=== PATIENT | male | born 1975 | race Caucasian/White ===

== ENCOUNTER 2021-01-04 10:03 | Emergency (ER) | payer OTHER, SELFPAY ==
--- NOTE | ~2021-01-04 | CT_ITS ---
EXAMINATION: CT soft tiss nk chst ab pel w EXAM DATE: 01/04/2021 11:47 INDICATION: Fullness in throat, neck swelling, abd pain. TECHNIQUE: Spiral CT of the neck, chest, abdomen and pelvis was performed following intravenous injec tion of 100 mL Omnipaque 350. Axial, coronal and sagittal images of the neck were reviewed. Axial, coronal and sagittal images of the chest were reviewed. Coronal maximum intensity pixel images of ch est reviewed. Axial, coronal and sagittal images of the abdomen and pelvis were reviewed. Additional stack of axial images with wider collimation. The dose-length product (DLP) for this examination was 1817.01 mGy-cm. The exposure was tailored according to patient size (auto mA exposure control), and iterative reconstruction (ASIR) was used as additional dose reduction technique. There is no prior study for comparison. FINDINGS: NECK: The thyroid gland is unremarkable. The submandibular and parotid glands are symmetric. Ther e is no cervical lymphadenopathy. There are no masses identified. The airway is unremarkable. P arapharyngeal and pre-glottic fat planes are preserved. The opacified vasculature is patent. The orbits are unremarkable. Small left maxillary sinus mucous retention cyst. No more than mild cervi albert spondylosis. CHEST: The lungs are clear. There are no pleural or pericardial effusions. Tracheobronchial tree is patent. There is no mediastinal, hilar or axillary lymphadenopathy. There is no pneumothorax. Heart normal in size. No evidence of coronary arterial calcification. ABDOMEN PELVIS: The liver, spleen, adrenal glands and pancreas are unremarkable. Gallbladder is unre markable. No biliary obstruction. Portal and splenic veins are patent. Kidneys enhance symmetrical ly. There is no hydronephrosis. There is a 3 cm exophytic left renal cyst. The prostate is unremark able. The bladder is unremarkable. There is no retroperitoneal or pelvic lymphadenopathy. The appendix is normal. The stomach and small bowel are unremarkable. There is expected amount of c olonic stool. No free intraperitoneal gas. 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 IMPRESSION: 1. No suspicious neck, chest abdomen or pelvis findings. Reviewed, dictated and finalized at location B. 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
[2021-01-04 10:36] VITALS: BP 143/95; PULSE 98; RESP 18; TEMP 36.4; O2SAT 100
--- NOTE | 2021-01-04 10:46 | ED.GENADULT ---
HPI - General Adult General Chief complaint: Unspecified Stated complaint: throat pain Time Seen by Provider: 01/04/21 10:33 Source: patient Mode of arrival: ambulatory Limitations: no limitations History of Present Illness HPI narrative: This is a 45-year-old male that presents the emergency department for issues that have been ongoing for the last year. Reports he has had a abnormal feeling in his throat. He does not reported as a pain. Reports it as a fullness. Also reports he noted swelling at the base of his neck. Reports he has intermittent abdominal pain, especially after he eats. Noted as burning in nature. He has been losing weight. He was seeing ENT for these issues initially, but has not had any further work-up since the pandemic started. Denies fever, chest pain, shortness of breath, or lower extremity edema. Related Data Allergies Allergy/AdvReac Type Severity Reaction Status Date / Time Penicillins Allergy Mild Unknown Verified 01/04/21 10:39 Review of Systems Review of Systems: Narrative: CONSTITUTIONAL: Denies fever CARDIOVASCULAR: Denies chest pain, or edema. RESPIRATORY: Denies cough or dyspnea. GASTROINTESTINAL: Reports abdominal pain. Denies nausea, vomiting, or diarrhea. All systems reviewed & are unremarkable except as noted in HPI and below PMFSH Past Medical History Medical History (Updated 01/04/21 @ 12:59 by Caitlyn Davey PA-C) No active medical problems Social History Social History (Updated 01/04/21 @ 10:48 by Caitlyn Davey PA-C) Smoking status: Former smoker Gender identity (if verbalized by the patient): Male Exam Narrative: Exam Narrative: GENERAL: Well-appearing, well-nourished, and in no acute distress. HEAD: Normocephalic, atraumatic. EYES: EOMI. ENT: Nares clear, no rhinorrhea or epistaxis. Mucous membranes moist. Oropharynx without tonsillar hypertrophy exudate or other lesions. Bilateral TMs pearly coy non-bulging NECK: Supple. No adenopathy or masses. CHEST: Clear to auscultation. No respiratory distress. No wheezes rales or rhonchi HEART: Regular rate and rhythm. No murmur heard. Normal peripheral pulses. ABDOMEN: Soft, nondistended, normal active bowel sounds. Mild tenderness to palpation throughout the abdomen, without guarding EXTREMITIES: Normal range of motion. No edema. SKIN: Warm, dry, no rash. NEURO: No focal deficits. Alert and oriented x3. PSYCH: Normal mood and affect Course Vital Signs Vital signs: Vital Signs Temperature 97.6 F 01/04/21 10:36 Pulse Rate 98 01/04/21 10:36 Respiratory Rate 18 01/04/21 10:36 Blood Pressure 143/95 H 01/04/21 10:36 Pulse Oximetry 100 01/04/21 10:36 Temperature 97.6 F 01/04/21 10:36 Pulse Rate 79 01/04/21 12:51 Respiratory Rate 18 01/04/21 12:51 Blood Pressure 123/93 H 01/04/21 12:51 Pulse Oximetry 98 01/04/21 12:51 Medical Decision Making MDM Narrative Medical decision making narrative: This is a 45-year-old male that presents the emergency department for symptoms that have been ongoing over the last year. He was reporting an abnormal sensation in his throat. Reports he had been losing weight. Was initially evaluated by ENT, but has had no further work-up due to the pandemic. His vitals are stable. Oxygen saturation remained normal on room air. CBC is normal. Metabolic panel significant for mild elevation in total bili to 1.8. Lipase is normal. CT scan of the neck, chest, and abdomen/pelvis is without acute findings. Patient was updated on case findings. He is stable and felt appropriate for further outpatient evaluation. He was given warnings to return to the ER After CT scan patient noted feeling of shortness of breath and a possible rash on the arms. Lungs were clear on exam. Oxygen saturation remained normal. No rash noted on exam. I did give patient a dose of Benadryl. He refused any other medications. He remained stable throughout the rest of his visit Vital S
[2021-01-04 11:01] LABS: Basophils Percent Auto 0.8 % (0.2-1.2); Eosinophils Absolute Auto 0.1 K/mm3 (0-0.3); Eosinophils Percent Auto 1.9 % (0-4.4); Hematocrit 43.5 % (42.0-52.0); Hemoglobin 15.8 g/dL (14.0-18.0); Immature Granulocyte Absolute 0.01 K/mm3 (0.00-0.031); Immature Granulocyte Percent A 0.2 % (0-0.5); Lymphocytes Absolute Auto 1.12 K/mm3 (0.9-3.2); Lymphocytes Percent Auto 23.1 % (18.3-44.2); Mean Corpuscular HGB Conc 36.3 g/dl (32-36); Mean Corpuscular Hemoglobin 32.4 pg (26-34); Mean Corpuscular Volume 89.1 fl (80-100); Mean Platelet Volume 9.4 fl (7.4-10.4); Monocytes Absolute Auto 0.3 K/mm3 (0.1-0.6); Monocytes Percent Auto 6.6 % (2.6-8.5); Neutrophils Absolute Auto 3.3 K/mm3 (1.3-6.7); Neutrophils Percent Auto 67.4 % (45.5-73.1); Platelet Count Result 214 k/mm3 (150-375); Red Blood Count 4.88 M/mm3 (4.6-6.20); Red Cell Distribution Width 12.4 % (11.5-14.5); White Blood Count 4.8 K/mm3 (4.5-10.0)
--- NOTE | 2021-01-04 11:19 | PC.NURSE ---
Pt report taken from ELENI Barrera. Pt resting on stretcher with family at bedside. Call light within reach. Awaiting CT scan. Pt updated on plan of care.
[2021-01-04 11:24] LABS: Alanine Aminotransferase 29 U/L (4-50); Albumin Level 4.5 g/dL (3.5-5.1); Alkaline Phosphatase 47 U/L (38-126); Anion Gap 6 mmol/L (8-16); Aspartate Amino Transferase 34 U/L (17-59); Bilirubin,Total 1.8 mg/dL (0.2-1.3); Blood Urea Nitrogen 18 mg/dL (9-20); Carbon Dioxide 29 mmol/L (22-30); Chloride 104 mmol/L (98-107); Estimated CRCL calculation 90 ml/min; Estimated Glomerular Filt Rate > 60; Glucose 108 mg/dL (75-110); Lipase 147 U/L (23-300); Potassium 4.2 mmol/L (3.4-5.0); Sodium 139 mmol/L (137-145)
--- NOTE | 2021-01-04 11:50 | PC.NURSE ---
Pt reports feeling slightly sob and itchy after receiving IV contrast. Pt reports sob has no resolved. SpO2 99% on room air. Pt states he does remember having similar reaction in the past to IV contrast. Pt placed on monitors.
[2021-01-04] MEDS: diphenhydrAMINE HCl INJ 50 MG/ML VIAL IV PUSH (11:54)
[2021-01-04 12:02] VITALS: BP 136/92; PULSE 78; RESP 16; O2SAT 99
[2021-01-04 12:51] VITALS: BP 123/93; PULSE 79; RESP 18; O2SAT 98
[2021-01-04 13:10] VITALS: BP 117/84; PULSE 74; RESP 18; O2SAT 97
== END 2021-01-04 13:12 | disposition home or self-care (01) ==
PROVIDERS: Physician Assistant; Emergency Provider Family Medicine
DX: K21.9 Gastro-esophageal reflux disease without esophagitis (principal); Z87.891 Personal history of nicotine dependence
CPT/HCPCS: 36415; 70491; 71260; 74177; 80053; 83690; 85025; 96374; 99284; J1200; Q9967

== ENCOUNTER 2021-01-29 09:42 | Outpatient (CLI) | payer OTHER, SELFPAY ==
[2021-01-29 10:26] LABS: Alanine Aminotransferase 23 U/L (4-50); Albumin Level 4.4 g/dL (3.5-5.1); Alkaline Phosphatase 44 U/L (38-126); Anion Gap 5 mmol/L (8-16); Aspartate Amino Transferase 22 U/L (17-59); Bilirubin,Total 1.7 mg/dL (0.2-1.3); Blood Urea Nitrogen 15 mg/dL (9-20); Calcium 9.3 mg/dL (8.4-10.2); Carbon Dioxide 30 mmol/L (22-30); Chloride 105 mmol/L (98-107); Cholesterol 182 mg/dL (0-200); Estimated Glomerular Filt Rate > 60; Glucose 110 mg/dL (75-110); HDL Direct 31 mg/dL; Potassium 4.1 mmol/L (3.4-5.0); Sodium 140 mmol/L (137-145); Triglycerides 98 mg/dL (<150)
[2021-01-29 10:37] LABS: LDL Cholesterol Direct 125 mg/dL
[2021-01-29 10:57] LABS: Prostate Specific Antigen 0.6 ng/mL (< OR = 4.0)
[2021-01-29 11:53] LABS: Add Urine Microscopic? YES; Appearance Urine Clear (Clear); Bacteria Urine Trace /hpf; Bilirubin Urine Negative (Negative); Blood Urine Negative (Negative); Color Urine Yellow (Yellow); Glucose Urine UA Negative (Negative); Ketones Urine Trace mg/dL (Negative); Leukocyte Esterase Ur Negative LEU/UL (NEGATIVE); Mucus Urine Moderate /lpf; Nitrate Urine Negative (Negative); Protein Urine Negative (Negative); RBC Urine 0-2 /hpf (0-2); Specific Grav Ur 1.025 (1.001-1.035); Urobilinogen Urine Negative mg/dL (<2.0); WBC Urine 0-3 /hpf (0-3)
== END 2021-01-29 09:43 | disposition home or self-care (01) ==
PROVIDERS: PCP Nurse Practitioner Family; Visit Provider Nurse Practitioner Family
DX: Z76.89 Persons encountering health services in other specified circumstances (principal); R17 Unspecified jaundice
CPT/HCPCS: 36415; 80048; 80061; 80076; 81001; 82607; 82746; 84153; 84443; G0103

== ENCOUNTER → 2021-03-10 01:28 | Outpatient (CLI) | payer OTHER, SELFPAY ==
[2021-03-10 19:16] LABS: SARS-CoV-2 RNA PCR Negative
== END ==
PROVIDERS: PCP Nurse Practitioner Family; Visit Provider Internal Medicine Gastroenterology
DX: Z01.812 Encounter for preprocedural laboratory examination (principal); Z20.822 Contact with and (suspected) exposure to COVID-19
CPT/HCPCS: C9803; U0003; U0005

== ENCOUNTER 2021-03-14 01:25 | Day surgery (SDC) | payer OTHER, SELFPAY ==
[2021-03-02 13:11] VITALS: BMI 25.9
[2021-03-14 06:15] VITALS: BP 131/99; PULSE 103; RESP 20; TEMP 36.9; O2SAT 99
[2021-03-14] MEDS: LACTATED RINGERS 1,000 ML 150 ML IV CONT (06:36)
--- NOTE | 2021-03-14 06:48 | WPDANESEPPF ---
Anes - Initial Pre Proc Eval Procedure: Operation Date: 03/14/21 07:30 Proposed Procedures p Esophagogastroduodenoscopy & Colonoscopy - Alberto Sin MD Date/Time: 03/14/21 06:48 Surgeon: Alberto Sin MD Pre Op Diagnosis: neoplasm screening, Dysphagia Patient Data Age: 45 Gender: M Height: 5 ft 9 in Weight: 81 kg Last Vital Signs Temp 36.9 C 03/14/21 06:15 Pulse 103 H 03/14/21 06:15 Resp 20 03/14/21 06:15 BP 131/99 H 03/14/21 06:15 Pulse Ox 99 03/14/21 06:15 Allergies Allergy/AdvReac Type Severity Reaction Status Date / Time Penicillins Allergy Mild Unknown Verified 03/14/21 06:14 Home Medications Medication Instructions Recorded Confirmed Type omeprazole 20 mg capsule,delayed 20 mg PO DAILY #30 cap 01/16/21 03/02/21 Rx release diazepam 5 mg tablet 5 mg PO DAILY PRN #30 tablet 01/24/21 03/02/21 Rx fluticasone propionate 50 1 spray INTRANASAL BID #16 g 01/24/21 03/02/21 Rx mcg/actuation nasal spray,suspension sulfamethoxazole 800 1 tablet PO Q12H #14 tablet 02/13/21 03/02/21 Rx mg-trimethoprim 160 mg tablet Patient hx anesthesia problems: none Family hx anesthesia problems: none PMFSH Past Medical History Medical History Altered bowel habits Anxiety BMI 27.0-27.9,adult Cervicalgia Encounter to establish care Epigastric pain Lumbago No active medical problems Prostate cancer screening Rhinitis Sensation of swollen throat Total bilirubin, elevated Surgical History Surgical History History of mandibular surgery Family History Family History Father Diabetes mellitus Hypertension Mother Diabetes mellitus Hypertension Heart disease Social History Social History Smoking packs per day: 4 Smoking cigarettes per day: 80.0 Smoking status: Former smoker Tobacco type: cigarettes Alcohol intake: never Substance use: current Substance use type: does not use Living arrangements: with family Gender identity (if verbalized by the patient): Male Spiritual care concerns: No Anes - Eval Final PreProcedure Day of Procedure 03/14/21 06:48 Patient weight: overweight Heart: regular rate and rhythm Lungs: clear to auscultation Airway: Mallampati scale class II Neurological: alert and oriented Last oral intake: >/= 8 hours ASA classification: II Emergent: no Anesthetic plan: proceed Anesthesia type and monitoring: general GIVS and standard monitoring Informed Consent: The patient's anesthetic plan and its attendant risks and benefits were discussed with the patient/family/POA. Questions were solicited and answers provided to the satisfaction of the patient/family/POA.
--- NOTE | 2021-03-14 07:32 | PM.HPGS ---
History of Present Illness History of Present Illness Consent: Risks, benefits, and alternatives have been discussed and questions answered. Patient agrees to proceed with procedure. Chief complaint: neoplasm screening, Dysphagia Narrative: Shadi Gudino is a 45 year old male here for egd and colonoscoy, throat discomfort, clearing constantly, epigastric discomfort and never had scopes. Review of Systems Constitutional: Constitutional: Denies headache(s) and Denies weakness Eyes: Eyes: Denies blurry vision ENT: Reports Normal hearing present, Denies headache(s) and Denies neck pain Cardiovascular: Cardiovascular: Denies chest pain and Denies dyspnea Respiratory: Respiratory: Denies dyspnea Gastrointestinal: Gastrointestinal: Reports no additional gastrointestinal complaints Genitourinary: Genitourinary: Denies dysuria Musculoskeletal: Musculoskeletal: Denies neck pain Integumentary/Breasts: Skin/Breast: Denies dry skin Neurologic: Reports Normal hearing present, Denies headache(s) and Denies weakness Psychiatric: Psychiatric: Denies anxiety Endocrine: Endocrine: Denies change in body appearance Hematologic/Lymphatic: Hematologic/Lymphatic: Denies easy bleeding Allergic/Immunologic: Allergic/Immunologic: Denies urticaria PMFSH Past Medical History Medical History (Updated 03/14/21 @ 07:33 by Alberto Sin MD) Altered bowel habits Anxiety BMI 27.0-27.9,adult Cervicalgia Colon cancer screening Encounter to establish care Epigastric pain Lumbago No active medical problems Prostate cancer screening Rhinitis Sensation of swollen throat Total bilirubin, elevated Surgical History Surgical History History of mandibular surgery Family History Family History Father Diabetes mellitus Hypertension Mother Diabetes mellitus Hypertension Heart disease Social History Social History Smoking packs per day: 4 Smoking cigarettes per day: 80.0 Smoking status: Former smoker Tobacco type: cigarettes Alcohol intake: never Substance use: current Substance use type: does not use Living arrangements: with family Gender identity (if verbalized by the patient): Male Spiritual care concerns: No Meds Home Medications and Allergies Home Medications Medication Instructions Recorded Confirmed Type omeprazole 20 mg capsule,delayed 20 mg PO DAILY #30 cap 01/16/21 03/14/21 Rx release diazepam 5 mg tablet 5 mg PO DAILY PRN #30 tablet 01/24/21 03/14/21 Rx fluticasone propionate 50 1 spray INTRANASAL BID #16 g 01/24/21 03/14/21 Rx mcg/actuation nasal spray,suspension Allergies Allergy/AdvReac Type Severity Reaction Status Date / Time Penicillins Allergy Mild Unknown Verified 03/14/21 06:14 Vital Signs Vital Signs - 24 hr 03/14/21 06:15 Temperature 98.4 F Pulse Rate 103 H Respiratory Rate 20 Blood Pressure 131/99 H Pulse Oximetry 99 Exam Const: General: comfortable and no acute distress HENMT: General nose exam: Normal nares present Eyes: General: appearance normal, both eyes and all related structures Neck: Neck: no JVD Resp: Auscultation: clear to auscultation bilaterally Cardio: Rate: regular rate Rhythm: regular rhythm GI: Inspection: non-distended GI Palp: Yes Soft to palpation Skin: General skin exam: normal color Neuro: General: gait normal Speech: normal speech Extrem: General: normal to inspection Psych: Mental Status: mental status grossly normal Assessment and Plan Assessment and plan (1) Epigastric pain: Code(s): R10.13 - Epigastric pain Status: Acute Assessment and Plan: egd (2) Sensation of swollen throat: Code(s): R68.89 - Other general symptoms and signs Status: Acute (3) Colon cancer scree
[2021-03-14 08:00] VITALS: BP 101/74; PULSE 88; RESP 17; O2SAT 95
[2021-03-14 08:10] VITALS: BP 112/63; PULSE 74; RESP 16; O2SAT 97
[2021-03-14 08:20] VITALS: BP 116/67; PULSE 72; RESP 18; O2SAT 98
== END 2021-03-14 08:40 | disposition home or self-care (01) ==
PROVIDERS: PCP Nurse Practitioner Family; Visit Provider Internal Medicine Gastroenterology
PROC: 0DJ08ZZ Inspection of Upper Intestinal Tract, Via Natural or Artificial Opening Endoscopic (ICD-10-PCS; CPT 43235; principal; 2021-03-14 07:30)
DX: Z12.11 Encounter for screening for malignant neoplasm of colon (principal); K64.8 Other hemorrhoids; K29.50 Unspecified chronic gastritis without bleeding; B96.81 Helicobacter pylori [H. pylori] as the cause of diseases classified elsewhere; R13.10 Dysphagia, unspecified; Z87.891 Personal history of nicotine dependence
CPT/HCPCS: 45378; 43239; 88305; 88342; J2704; J7120

== ENCOUNTER 2021-04-25 11:14 | Emergency (ER) | payer OTHER, SELFPAY ==
--- NOTE | ~2021-04-25 | CT_ITS ---
EXAMINATION: CT abdomen pelvis wo con DATE: 04/25/2021 12:26 INDICATION: Left flank pain. History of kidney stones. TECHNIQUE: Computed tomography (CT) of the abdomen and pelvis was performed without intravenous contr ast. The dose-length product was 424.48 mGy-cm. Automated exposure control and iterative reconstructi on technique were employed. COMPARISON: None. FINDINGS: Lung bases are unremarkable. Heart size is normal. There there is mild thickening of the di stal gastric wall and duodenum, nonspecific. There is a 3.3 cm exophytic left renal mass measuring 25 Hounsfield units, likely a complicated cyst. Recommend correlation with ultrasound. The liver, spleen, pancreas, adrenal glands and right kidney are unremarkable. Gallbladder is present. Tiny fat-containing umbilical hernia. Nonobstructive bowel gas pattern. No renal/ureteral stone or hydronephrosis. No bladder is unremarkable. No evidence for d iverticulitis or appendicitis. No free air or free fluid. No significant vascular abnormality. No lym phadenopathy. Borderline sized spleen. IMPRESSION: 1. Mild thickening of the distal gastric and duodenal mcconnell, suspicious for gastroenteritis. No obstr uction. 2: Exophytic 3.3 cm hypodense left renal mass. This likely represents a complicated cyst. Correlation with renal ultrasound recommended. Reviewed, dictated and finalized at location A. IMPRESSION: 1. Mild thickening of the distal gastric and duodenal mcconnell, suspicious for gas troenteritis. No obstruction. 2: Exophytic 3.3 cm hypodense left renal mass. This likely represents a complic ated cyst. Correlation with renal ultrasound recommended.
--- NOTE | ~2021-04-25 | US_ITS ---
US renal BI 04/25/2021 13:35 Procedure: Realtime transabdominal ultrasound of the kidneys and bladder. Indication: Left renal mass for characterization Comparison: CT dated 04/25/2021 Findings: Right renal echotexture is normal bilaterally without hydronephrosis, contour deforming mas s or renal calculus. There is a left renal cyst measuring 3 x 2.8 x 2.6 cm exophytic from the lower p ole of left kidney. The right kidney measures 10.7 cm and left kidney measures 11.3 cm. Bladder with in normal limits. Impression: 1: Exophytic 3 cm left renal cyst corresponding to the mass identified on CT. Low level internal echo es are present, consistent with minimally complicated cyst. Reviewed, dictated and finalized at location A. Impression: 1: Exophytic 3 cm left renal cyst corresponding to the mass identified on CT. L ow level internal echoes are present, consistent with minimally complicated cys t.
[2021-04-25 11:20] VITALS: BP 154/110; PULSE 83; RESP 19; TEMP 36.4; O2SAT 99
[2021-04-25 11:38] LABS: Basophils Percent Auto 0.7 % (0.2-1.2); Eosinophils Absolute Auto 0.2 K/mm3 (0-0.3); Eosinophils Percent Auto 3.1 % (0-4.4); Hematocrit 44.8 % (42.0-52.0); Immature Granulocyte Absolute 0.02 K/mm3 (0.00-0.031); Immature Granulocyte Percent A 0.3 % (0-0.5); Lymphocytes Percent Auto 34.1 % (18.3-44.2); Mean Corpuscular HGB Conc 35.7 g/dl (32-36); Mean Corpuscular Hemoglobin 31.8 pg (26-34); Mean Corpuscular Volume 89.1 fl (80-100); Mean Platelet Volume 9.5 fl (7.4-10.4); Monocytes Absolute Auto 0.5 K/mm3 (0.1-0.6); Monocytes Percent Auto 8.8 % (2.6-8.5); Neutrophils Absolute Auto 3.3 K/mm3 (1.3-6.7); Platelet Count Result 212 k/mm3 (150-375); Red Blood Count 5.03 M/mm3 (4.6-6.20); Red Cell Distribution Width 13.1 % (11.5-14.5); White Blood Count 6.2 K/mm3 (4.5-10.0)
--- NOTE | 2021-04-25 11:39 | ED.ABDPAIN ---
HPI - Abdominal Pain General Chief Complaint: Abdominal Pain Stated Complaint: Flank Pain, Left Side Time Seen by Provider: 04/25/21 11:35 Source: patient and RN notes reviewed Limitations: no limitations History of Present Illness HPI narrative: 45 years old white male presents with right abdominal pain started last night, until this morning. Then got better. Patient reports having a lot of gas. Prior to arrival to the emergency room developed left abdominal pain radiating to left flank associated with nausea, patient denies any relieving or aggravating factors, no history of kidney stone. Patient denies any fever or chills or urinary symptoms Related Data Allergies Allergy/AdvReac Type Severity Reaction Status Date / Time Penicillins Allergy Mild Unknown Verified 04/25/21 11:32 Review of Systems Review of Systems: Narrative: CONSTITUTIONAL: Denies fever, chills, or sweats. EYES: Denies visual changes, redness, or discharge. ENT: Denies rhinorrhea, congestion, sore throat, or otalgia. CARDIOVASCULAR: Denies chest pain, palpitations, or edema. RESPIRATORY: Denies cough or dyspnea. GASTROINTESTINAL: Denies abdominal pain, nausea, vomiting, or diarrhea. GENITOURINARY: Denies dysuria or hematuria. SKIN: Denies rash or itching. MUSCULOSKELETAL: Denies back pain, joint pain, or myalgia. NEUROLOGIC: Denies headache, numbness, or weakness. PSYCHIATRIC: Denies anxiety or depression. [facility] Past Medical History Medical History Altered bowel habits Anxiety BMI 27.0-27.9,adult Cervicalgia Colon cancer screening Encounter to establish care Epigastric pain Lumbago No active medical problems Prostate cancer screening Rhinitis Sensation of swollen throat Total bilirubin, elevated Surgical History Surgical History History of mandibular surgery Family History Family History Father Diabetes mellitus Hypertension Mother Diabetes mellitus Hypertension Heart disease Social History Social History Smoking packs per day: 4 Smoking cigarettes per day: 80.0 Smoking status: Former smoker Tobacco type: cigarettes Alcohol intake: never Substance use: current Substance use type: does not use Gender identity (if verbalized by the patient): Male Spiritual care concerns: No Exam Narrative: Exam Narrative: General appearance: Well-developed, well-nourished. Patient in a standing position, looks very uncomfortable, pacing the floor Skin: Normal color Head: Normocephalic, nontraumatic Eyes: Clear conjunctiva ENT: Oropharynx normal, ears normal, nose normal Neck: Supple, nontender Chest and respiratory: Airway patent, no respiratory distress, no accessory muscle use Heart: Regular rate/rhythm Abdomen: Soft, nontender, no organomegaly, quiet bowel sounds Vascular: Normal peripheral pulses, normal capillary refill. 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
[2021-04-25] MEDS: HYDROmorphone HCL INJ (*CRX) 1 MG/ML SYR 0.5 MG IV PUSH (11:44)
[2021-04-25] MEDS: TAMSULOSIN HCL 0.4 MG CAPSULE PO (11:44)
[2021-04-25] MEDS: ONDANSETRON INJ 4 MG/2 ML VIAL IV PUSH (11:44)
[2021-04-25 11:46] LABS: Alanine Aminotransferase 46 U/L (4-50); Albumin Level 4.5 g/dL (3.5-5.1); Alkaline Phosphatase 50 U/L (38-126); Anion Gap 9 mmol/L (8-16); Aspartate Amino Transferase 43 U/L (17-59); Bilirubin,Total 1.3 mg/dL (0.2-1.3); Blood Urea Nitrogen 13 mg/dL (9-20); Calcium 9.3 mg/dL (8.4-10.2); Carbon Dioxide 27 mmol/L (22-30); Chloride 104 mmol/L (98-107); Estimated CRCL calculation 82 ml/min; Estimated Glomerular Filt Rate > 60; Glucose 103 mg/dL (75-110); Lipase 137 U/L (23-300); Potassium 3.8 mmol/L (3.4-5.0); Sodium 140 mmol/L (137-145)
[2021-04-25 12:57] LABS: Add Urine Microscopic? YES; Appearance Urine Clear (Clear); Bilirubin Urine Negative (Negative); Blood Urine Negative (Negative); Color Urine Yellow (Yellow); Glucose Urine UA Negative (Negative); Ketones Urine Negative (Negative); Leukocyte Esterase Ur Negative LEU/UL (Negative); Mucus Urine Moderate /lpf; Nitrate Urine Negative (Negative); Protein Urine 1+ mg/dL (Negative); RBC Urine 0-2 /hpf (0-2); Specific Grav Ur 1.021 (1.001-1.035); Urobilinogen Urine Negative mg/dL (<2.0); WBC Urine 0-3 /hpf
--- NOTE | 2021-04-25 13:02 | PC.NURSE ---
Pt to ultrasound.
== END 2021-04-25 14:46 | disposition home or self-care (01) ==
PROVIDERS: Emergency Provider Emergency Medicine; PCP Nurse Practitioner Family
DX: K52.9 Noninfective gastroenteritis and colitis, unspecified (principal); N28.1 Cyst of kidney, acquired; Z87.891 Personal history of nicotine dependence
CPT/HCPCS: 36415; 74176; 76775; 80053; 81001; 83690; 85025; 96374; 96375; 99284; A9270; J1170; J2405

== ENCOUNTER → 2021-07-13 09:33 | Outpatient (CLI) | payer OTHER, SELFPAY ==
[2021-07-13 18:14] LABS: SARS-CoV-2 RNA PCR Negative
== END ==
PROVIDERS: PCP Nurse Practitioner Family; Visit Provider Nurse Practitioner Family
DX: J34.89 Other specified disorders of nose and nasal sinuses (principal); R50.9 Fever, unspecified; R11.2 Nausea with vomiting, unspecified
CPT/HCPCS: C9803; U0003; U0005

== ENCOUNTER → 2021-09-05 14:30 | Outpatient (CLI) | payer OTHER, SELFPAY ==
--- NOTE | ~2021-09-05 | XR_ITS ---
EXAMINATION: XR chest 2V DATE: 09/05/2021 14:48 INDICATION: Shortness of breath. TECHNIQUE: Frontal and lateral views of the chest were obtained. COMPARISON: Chest 2 views 02/11/2019, CT abdomen and pelvis 04/25/2021 FINDINGS: The chest demonstrates clear lungs without pneumonia, pleural effusion, or pneumothorax. Th e heart size is normal. There are old healed left rib fractures. IMPRESSION: 1. No acute cardiopulmonary disease. Reviewed, dictated and finalized at location A.
== END ==
PROVIDERS: PCP Family Medicine; Visit Provider Nurse Practitioner Family
DX: R06.02 Shortness of breath (principal); R05.9 Cough, unspecified
CPT/HCPCS: 71046

== ENCOUNTER 2021-12-24 14:37 | Outpatient (CLI) | payer OTHER, SELFPAY ==
--- NOTE | ~2021-12-24 | CT_ITS ---
EXAMINATION: CT soft tissue neck chest w DATE: 12/24/2021 15:09 INDICATION: R59.1 - Generalized enlarged lymph nodes TECHNIQUE: Computed tomography (CT) of the neck and chest was performed with 75 mL Omnipaque-350 intr avenous contrast. Additional 3D reconstructions utilizing coronal maximum intensity projection (MIP) were performed. Automated exposure control and iterative reconstruction technique were employed. The dose-length product was 1204.51 mGy-cm. COMPARISON: 01/04/2021 FINDINGS: NECK: Thyroid gland is unremarkable. Submandibular and parotid glands are symmetric. There is a 1.6 x 1.0 x 0.6 cm the subperiosteal abscess along the anterior right mandible overlying a periapical lucency involving the right mandibular canine likely related to dental disease. There is soft tissue swelling and likely reactive inflammatory edema in the overlying subcutaneous tissues. Interval enlargement o f a still normal-sized right submandibular lymph node which measures 10 mm in maximal short axis diam eter. There are few additional smaller submental lymph nodes. No other pathologically enlarged cervic al lymphadenopathy. No masses identified. The vasculature is patentand normal in caliber. Airway is unremarkable. No osseous abnormalities. Orbits are unremarkable. Superior mediastinum is unremarka ble. Visualized sinuses and mastoid aircells are well aerated. CHEST: Lungs are clear. No pneumonia, pulmonary edema, pleural effusion or pneumothorax. Heart size is octavia l. No pericardial effusion. Thoracic aorta is normal in caliber with no dissection. No pathologically enlarged thoracic lymphadenopathy. Visualized upper abdomen and bones are unremarkable. IMPRESSION: 1. Anterior right mandibular subperiosteal abscess associated with periapical lucency at the right ma ndibular canine. 2. Likely reactive right submandibular lymphadenopathy. No pathologically enlarged cervical or thorac ic lymphadenopathy. Reviewed, dictated and finalized at location A. CUTTER IMPRESSION: 1. Anterior right mandibular subperiosteal abscess associated with periapical l ucency at the right mandibular canine. 2. Likely reactive right submandibular lymphadenopathy. No pathologically enlar ged cervical or thoracic lymphadenopathy.
== END 2021-12-24 14:38 | disposition home or self-care (01) ==
LOC: ANHIMG 14:43
PROVIDERS: PCP Nurse Practitioner Family; Visit Provider Nurse Practitioner Family
DX: R05.3 Chronic cough (principal); R59.0 Localized enlarged lymph nodes; R06.02 Shortness of breath; R07.81 Pleurodynia; R07.9 Chest pain, unspecified; R53.83 Other fatigue; R59.1 Generalized enlarged lymph nodes; R68.89 Other general symptoms and signs; Z87.891 Personal history of nicotine dependence; K05.219 Aggressive periodontitis, localized, unspecified severity
CPT/HCPCS: 70491; 71260; Q9967

== ENCOUNTER 2022-01-02 08:53 | Outpatient (CLI) | payer OTHER, SELFPAY ==
--- NOTE | ~2022-01-02 | US_ITS ---
US abdomen complete EXAMINATION: US Abdomen Complete INDICATION: Abdomen pain PROCEDURE: Realtime High Resolution abdomen ultrasound. COMPARISON: No prior studies for comparison FINDINGS: Gallbladder within normal limits. No gallstones, pericholecystic fluid, gallbladder wall t hickening or biliary dilatation. Common bile duct measures 4.3 mm. Liver echotexture within normal limits without focal mass. Pancreas within normal limits. Pancreati c tail is obscured by bowel gas. Spleen is unremarkeable. Renal echotexture is within normal limits bilaterally without hydronephrosis, contour deforming mass or renal stone. Right kidney measures 9.7 cm. Left kidney measures 11.1 cm. There is a left renal cyst measuring 2.9 cm. Visualized aspects of the aorta and IVC are within normal limits. Portal vein is patent. No sonograph ic Felton's sign indicated by the technologist. IMPRESSION: 1: Left renal cyst. Reviewed, dictated and finalized at location B. NOLOGY APPLICATIONS CONSULTANT IMPRESSION: 1: Left renal cyst.
== END 2022-01-02 08:54 | disposition home or self-care (01) ==
LOC: ANHIMG 08:54
PROVIDERS: PCP Nurse Practitioner Family; Visit Provider Nurse Practitioner Family
DX: R10.9 Unspecified abdominal pain (principal); N28.1 Cyst of kidney, acquired
CPT/HCPCS: 76700

== ENCOUNTER 2022-01-09 08:54 | Outpatient (CLI) | payer OTHER, SELFPAY ==
--- NOTE | ~2022-01-09 | XR_ITS ---
EXAMINATION: XR small bowel follow through DATE: 01/09/2022 11:56 INDICATION: Unspecified abdominal pain. TECHNIQUE: Oral contrast was administered, and a time course of radiographs of the abdomen was obtain ed. Fluoroscopy of the small bowel was performed. Fluoroscopy exposure time was 1.3 minutes. The tota l number of images was 9. COMPARISON: CT abdomen and pelvis 04/25/2021 FINDINGS: There are no dilated loops of bowel. There is no abnormal mass or stricture. Transit time from the st omach to proximal colon was approximately 2 hours. IMPRESSION: 1. Normal small bowel series. Reviewed, dictated and finalized at location A. 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
== END 2022-01-09 08:55 | disposition home or self-care (01) ==
LOC: ANHIMG 08:57
PROVIDERS: PCP Nurse Practitioner Family; Visit Provider Nurse Practitioner Family
DX: R10.9 Unspecified abdominal pain (principal)
CPT/HCPCS: 74250

== ENCOUNTER 2022-02-09 14:18 | Emergency (ER) | payer OTHER, SELFPAY ==
[2022-02-09 14:28] VITALS: BP 134/89; PULSE 81; RESP 18; TEMP 36.8; O2SAT 99
--- NOTE | 2022-02-09 14:44 | ED.DENTAL ---
HPI - Dental/Oral General Chief complaint: Dental/Oral Stated complaint: toothache Time Seen by Provider: 02/09/22 14:30 Source: patient Mode of arrival: ambulatory Limitations: no limitations History of Present Illness HPI Narrative: is a 46-year-old male patient presenting to clinic today with complaints of possible dental abscess to the right lower tooth. He reports that he has been doing this for for a couple weeks now. States that this tooth has actually been bothering him for a couple months and he was supposed to see the dentist to have a root canal completed or the tooth removed however, Covid happened and when he could get back into the dentist they no longer accepted his insurance and he would have to pay $1500 [id number] to have the procedure completed. Has seen a provider 3 weeks ago and was given a prescription for some Augmentin. He had finished this approximately a week ago and symptoms improved however, symptoms returned again 1 to 2 days ago. Has an allergy to clindamycin. He denies any fever chills. Reports that his face was swelling this morning and he had significant amount of pain in his right lower tooth. Pain is located to tooth #28. He reports he supposed to go to the dentist here soon when he has enough money saved up for a root canal of this tooth. States he will have enough money saved up in a week or 2 to follow-up with the dentist MD Complaint: tooth pain Location: Tooth # (28) Related Data Allergies Allergy/AdvReac Type Severity Reaction Status Date / Time Penicillins Allergy Mild Unknown Verified 02/09/22 14:49 clindamycin Allergy Unknown Verified 02/09/22 14:49 Review of Systems Review of Systems: Pertinent positives per HPI. Patient denies any fever, chills, rash, headache, visual changes, dizziness, cough, runny nose, sore throat, shortness of breath, chest pain, palpitations, nausea, vomiting, diarrhea, constipation, abdominal pain, or any urinary issues. [facility] Past Medical History Medical History Altered bowel habits Anxiety BMI 27.0-27.9,adult Cervicalgia Chest pain Chronic cough Colon cancer screening Coughing Decreased exercise tolerance Encounter to establish care Epigastric pain Fatigue Fever H. pylori infection H. pylori infection Headache History of tobacco abuse Hypersomnia Lumbago Lymphadenopathy Nasal congestion Nausea and vomiting in adult No active medical problems Pharyngitis Prostate cancer screening Rhinitis Rib pain on left side Sensation of swollen throat Shortness of breath Sinus pressure Sinusitis Snoring Thrush Total bilirubin, elevated Surgical History Surgical History History of mandibular surgery Family History Family History Father Diabetes mellitus Hypertension Mother Diabetes mellitus Hypertension Heart disease Social History Social History Smoking packs per day: 4 Smoking cigarettes per day: 80.0 Smoking status: Former smoker Tobacco type: cigarettes Alcohol intake: never Substance use: current Substance use type: marijuana Gender identity (if verbalized by the patient): Male Sexual Orientation (if Verbalized by the Patient): Straight or Heterosexual Spiritual care concerns: No Agree to blood products: Yes Comments At the time of my signature, I reviewed and agree with the nursing past medical, surgical, social, and family history. There is no relevant family history pertinent to the patient complaint. Exam Narrative: General: Well-developed, well nourished, in no apparent distress Head: Normocephalic, atraumatic Eyes: Pupils equally round and reactive to light bilaterally, EOM intact, sclera and conjunctive clear, no discharge, lids normal Ears:
== END 2022-02-09 15:20 | disposition home or self-care (01) ==
PROVIDERS: Emergency Provider Nurse Practitioner Family; PCP Nurse Practitioner Family
DX: K04.7 Periapical abscess without sinus (principal); Z87.891 Personal history of nicotine dependence; F12.90 Cannabis use, unspecified, uncomplicated
CPT/HCPCS: 99213; G0463

== ENCOUNTER 2023-02-06 09:57 | Outpatient (CLI) | payer OTHER, SELFPAY ==
--- NOTE | 2023-02-06 10:06 | EST_ITS ---
Patient Info Name: Shadi Gudino Age: 47 years : 1975 Gender: Male Ht: 69 in Wt: 185 lbs BSA: 2.04 m2 HR: 78 bpm BP: 129 / 74 mmHg Heart Rhythm: Sinus Rhythm Exam Date: 02/06/2023 10:22 AM Exam Location: [facility] Stress Patient Status: Outpatient Admit Date: 02/06/2023 Staff Ordering Physician: Angelic Kevin NP Attending Provider: Angelic Kevin NP Exercise Technologist: Analisa Sterling CT Exercise Physician: Agustin Bear DO Exam Type: CA stress test treadmill Study Info Indications R07.89 - Other chest pain R42 - Dizziness and giddiness R06.02 - Shortness of breath A treadmill exercise stress test was performed. Summary 1. 1. Negative Travis exercise stress test for ischemic ST changes by ECG criteria. 2. 2. Good functional capacity, achieving 10 METs of workload. 3. 3. Appropriate HR response to exercise. 4. 4. Appropriate HR recovery at 1 minute post exercise. 5. 5. No imaging with stress testing. 6. 6. Patient informed of the above results. Protocol: Travis Stress ECG Details Stage: REST Duration (min): 1 min : 16 sec Speed (mph): 0.0 Grade (%): 0 HR (bpm): 75 SBP (mmHg): 129 DBP (mmHg): 94 METS: --- Stage: REST Duration (min): 20 min : 32 sec Speed (mph): 0.0 Grade (%): 0 HR (bpm): 86 SBP (mmHg): 129 DBP (mmHg): 94 METS: --- Stage: STAGE 1 Duration (min): 1 min : 0 sec Speed (mph): 1.7 Grade (%): 10 HR (bpm): 98 SBP (mmHg): 129 DBP (mmHg): 94 METS: --- Stage: STAGE 1 Duration (min): 2 min : 0 sec Speed (mph): 1.7 Grade (%): 10 HR (bpm): 106 SBP (mmHg): 129 DBP (mmHg): 94 METS: --- Stage: STAGE 1 Duration (min): 3 min : 0 sec Speed (mph): 1.7 Grade (%): 10 HR (bpm): 112 SBP (mmHg): 156 DBP (mmHg): 86 METS: --- Stage: STAGE 2 Duration (min): 1 min : 0 sec Speed (mph): 2.5 Grade (%): 12 HR (bpm): 122 SBP (mmHg): 156 DBP (mmHg): 86 METS: --- Stage: STAGE 2 Duration (min): 2 min : 0 sec Speed (mph): 2.5 Grade (%): 12 HR (bpm): 128 SBP (mmHg): 159 DBP (mmHg): 91 METS: --- Stage: STAGE 2 Duration (min): 3 min : 0 sec Speed (mph): 2.5 Grade (%): 12 HR (bpm): 130 SBP (mmHg): 159 DBP (mmHg): 91 METS: --- Stage: STAGE 3 Duration (min): 1 min : 0 sec Speed (mph): 3.4 Grade (%): 14 HR (bpm): 151 SBP (mmHg): 157 DBP (mmHg): 97 METS: --- Stage: STAGE 3 Duration (min): 2 min : 0 sec Speed (mph): 3.4 Grade (%): 14 HR (bpm): 158 SBP (mmHg): 157 DBP (mmHg): 97 METS: --- Stage: STAGE 3 Duration (min): 2 min : 0 sec Speed (mph): 3.4 Grade (%): 14 HR (bpm): 158 SBP (mmHg): 157 DBP (mmHg): 97 METS: --- Stage: RECOVERY Duration (min): 0 min : 59 sec Speed (mph): 0.0 Grade (%): 0 HR (bpm): 130 SBP (mmHg): 162 DB
== END 2023-02-06 09:58 | disposition home or self-care (01) ==
LOC: ANHCARD 09:57
PROVIDERS: PCP Nurse Practitioner Family; Visit Provider Nurse Practitioner Family
DX: R68.89 Other general symptoms and signs (principal)
CPT/HCPCS: 93017

== ENCOUNTER 2023-08-20 12:30 | Emergency (ER) | payer OTHER, SELFPAY ==
[2023-08-20 12:36] VITALS: BP 155/97; PULSE 82; RESP 18; TEMP 36.4; O2SAT 100
--- NOTE | 2023-08-20 12:54 | ED.URI ---
HPI - URI/Sore Throat General Chief Complaint: Upper Respiratory Infection Stated Complaint: Headache,Body Aches,Dizziness,Congestion Time Seen by Provider: 08/20/23 12:46 Source: patient and RN notes reviewed Mode of arrival: ambulatory Limitations: no limitations History of Present Illness HPI Narrative: Patient presents today with a one-week history of body aches, joint aches, fatigue, and occasional productive cough. He also reports headache x3 days. Denies fever, sore throat, nausea vomiting, nasal congestion or rhinorrhea. Denies sick contacts. He took Aleve once without relief of symptoms. Patient is a former smoker, quit 10 years ago, but used to smoke 3-4 packs per day. Denies history of COPD or asthma. Related Data Allergies Allergy/AdvReac Type Severity Reaction Status Date / Time venom-wasp Allergy Severe Anaphylaxis Verified 08/20/23 12:33 clindamycin AdvReac Mild Blister Verified 08/20/23 12:33 Penicillins AdvReac Mild Rash Verified 08/20/23 12:33 Review of Systems Review of Systems: CONSTITUTIONAL: Denies fever, chills, or sweats.+ body aches, joint aches, fatigue EYES: Denies visual changes, redness, or discharge. ENT: Denies rhinorrhea, congestion, sore throat, or otalgia. CARDIOVASCULAR: Denies chest pain, palpitations, or edema. RESPIRATORY: Denies dyspnea.+ occasional cough GASTROINTESTINAL: Denies abdominal pain, nausea, vomiting, or diarrhea. GENITOURINARY: Denies dysuria or hematuria. SKIN: Denies rash, itching, or wounds. MUSCULOSKELETAL: Denies back pain, or myalgia. NEUROLOGIC: Denies headache, numbness, tingling, or weakness.+ headache PSYCH: Denies depression or anxiety. [facility] Past Medical History Medical History Allergic reaction to wasp sting (05/03/22) treated in the ER with epinephrine, prednisone, Benadryl 05/03/2022. Altered bowel habits Anxiety Asthma BMI 27.0-27.9,adult Cervicalgia Chest pain Chronic cough Colon cancer screening Coughing Cyst of left kidney Decreased exercise tolerance Dysuria Encounter to establish care Epigastric pain Fatigue Fever GERD (gastroesophageal reflux disease) H. pylori infection H. pylori infection Headache History of tobacco abuse Hypersomnia Lesion of mouth Lumbago Lymphadenopathy Nasal congestion Nausea and vomiting in adult No active medical problems Periodontitis Pharyngitis Prostate cancer screening Rhinitis Rib pain on left side Sensation of swollen throat Shortness of breath Sinus pressure Sinusitis Snoring Thrush Total bilirubin, elevated Surgical History Surgical History History of mandibular surgery Family History Family History Father Diabetes mellitus Hypertension Mother Diabetes mellitus Hypertension Heart disease Social History Social History Smoking packs per day: 4 Smoking cigarettes per day: 80.0 Smoking status: Former smoker Tobacco type: cigarettes Alcohol intake: current Alcohol use details: Rarely Substance use: current Substance use type: marijuana Living arrangements: with family Occupation/Education: occupation Gender identity (if verbalized by the patient): Male Sexual Orientation (if Verbalized by the Patient): Straight or Heterosexual Spiritual care concerns: No Agree to blood products: Yes Comments At time of signature, I have reviewed and agree with nursing past medical, surgical, social and family history unless otherwise noted. Please see nursing chart for further information. There is no relevant family history pertinent to the presenting complaint Exam Narrative: GENERAL: Well-appearing, well-nourished, and in no acute distress. HEAD: Normocephalic, atraumatic. EYES: EOMI. No redness or drainage. C
== END 2023-08-20 13:14 | disposition home or self-care (01) ==
PROVIDERS: Emergency Provider Nurse Practitioner; PCP Nurse Practitioner Family
DX: B34.9 Viral infection, unspecified (principal); Z87.891 Personal history of nicotine dependence; Z20.822 Contact with and (suspected) exposure to COVID-19
CPT/HCPCS: 87426; 87804; 99213; C9803; G0463

== ENCOUNTER 2024-09-27 14:54 | Emergency (ER) | payer OTHER, SELFPAY ==
[2024-09-27 15:14] VITALS: BP 128/81; PULSE 75; RESP 18; TEMP 36.7; O2SAT 99
--- NOTE | 2024-09-27 15:56 | ED_ITS ---
HPI - URI/Sore Throat General Chief Complaint: Upper Respiratory Infection Stated Complaint: sinus issues and headache Time Seen by Provider: 09/27/24 15:26 Source: patient and RN notes reviewed Mode of arrival: ambulatory Limitations: no limitations History of Present Illness HPI Narrative: Patient presents today with a 3 day history of scratchy throat, headache, nausea, fatigue, and bilateral ear clogging. Denies fever, cough, shortness of breath, chest pain. He has been taking Sudafed and Nyquil with mild relief. No history of COPD or asthma. Son currently sick with similar symptoms. Related Data Home Medications Medication Instructions Recorded Confirmed sucralfate 1 gram tablet 09/27/24 Allergies Allergy/AdvReac Type Severity Reaction Status Date / Time venom-wasp Allergy Severe Anaphylaxis Verified 09/27/24 15:21 clindamycin Allergy Mild Blister Verified 09/27/24 15:21 Penicillins Allergy Mild Rash Verified 09/27/24 15:21 Review of Systems Review of Systems: CONSTITUTIONAL: Denies body aches, fever, chills, or sweats.+ fatigue EYES: Denies visual changes, redness, or discharge. ENT: Denies rhinorrhea, congestion, sore throat, or otalgia.+ scratchy throat, ear clogging CARDIOVASCULAR: Denies chest pain, palpitations, or edema. RESPIRATORY: Denies cough or dyspnea. GASTROINTESTINAL: Denies abdominal pain, vomiting, or diarrhea.+ nausea GENITOURINARY: Denies dysuria or hematuria. SKIN: Denies rash, itching, or wounds. MUSCULOSKELETAL: Denies back pain, joint pain, or myalgia. NEUROLOGIC: Denies numbness, tingling, or weakness.+ headache PSYCH: Denies depression or anxiety. [facility] Past Medical History Medical History Allergic reaction to wasp sting (05/03/22) treated in the ER with epinephrine, prednisone, Benadryl 05/03/2022. Altered bowel habits Anxiety Arthralgia of multiple joints Asthma BMI 27.0-27.9,adult Cervicalgia Chest pain Chronic cough Colon cancer screening Coughing Cyst of left kidney Decreased exercise tolerance Dysuria Elevated fasting glucose Encounter to establish care Epigastric pain Fatigue Fever GERD (gastroesophageal reflux disease) H. pylori infection H. pylori infection Headache History of tobacco abuse Hyperlipidemia Hypersomnia Lesion of mouth Lumbago Lymphadenopathy Nasal congestion Nausea and vomiting in adult No active medical problems Periodontitis Pharyngitis Prostate cancer screening Rhinitis Rib pain on left side Sensation of swollen throat Shortness of breath Sinus pressure Sinusitis Snoring Thrush Total bilirubin, elevated Surgical History Surgical History History of mandibular surgery Family History Family History Father Diabetes mellitus Hypertension Mother Diabetes mellitus Hypertension Heart disease Social History Social History Smoking packs per day: 4 Smoking cigarettes per day: 80.0 Smoking status: Former smoker Tobacco type: cigarettes Alcohol intake: current Alcohol use details: Rarely Substance use: current Substance use type: marijuana Living arrangements: with family Occupation/Education: occupation Gender identity (if verbalized by the patient): Male Sexual Orientation (if Verbalized by the Patient): Straight or Heterosexual Spiritual care concerns: No Agree to blood products: Yes Comments At time of signature, I have reviewed and agree with nursing past medical, surgical, social and family history unless otherwise noted. Please see nursing chart for further information. There is no relevant family history pertinent to the presenting complaint Exam Narrative: GENERAL: Well-appearing, well-nourished, and in no acute distress. HEAD: Normocephalic, atraumatic. EYES: EOMI. No redness or drainage. Conjunctivae normal. ENT: Mucous membranes pink and moist. Nares clear. No rhinorrhea. TMs normal bilaterally. Throat normal. Uvula midline. NECK: Normal AROM. Supple. No lymphadenopathy. CHEST: No respiratory distress. Clear to auscultation. HEART: Regular rate and rhythm. No murmur appreciated. EXTREMITIES: Normal range of motion. No edema. SKIN: Warm, dry, no rash. Capillary refill normal. Normal skin turgor. NEURO: No focal deficits. Alert and oriented x3. Gait steady. PSYCH: Normal affect. No signs of depression or anxiety. Course Course Level of Care: Express Care Visit Vital Signs Vital signs: Vital Signs Temperature 98.1 F 09/27/24 15:14 Pulse Rate 75 09/27/24 15:14 Respiratory Rate 18 09/27/24 15:14 Blood Pressure 128/81 09/27/24 15:14 Pulse Oximetry 99 09/27/24 15:14 Oxygen Delivery Room Air 09/27/24 15:14 Temperature 98.1 F 09/27/24 15:14 Pulse Rate 75 09/27/24 15:14 Respiratory Rate 18 09/27/24 15:14 Blood Pressure 128/81 09/27/24 15:14 Pulse Oximetry 99 09/27/24 15:14 Oxygen Delivery Room Air 09/27/24 15:14 Reviewed MDM - URI/Sore Throat MDM Narrative Medical decision making narrative: Influenza and COVID negative. Symptoms likely viral in etiology. Discussed ov [id number] medication use and duration of illness. No prescription medications indicated at this time. Anticipatory guidance given. Differential Diagnosis Differential diagnosis: Likely upper respiratory infection, otitis media, viral infection, influenza and other (COVID) Lab Data Attestation: I reviewed the patient's lab results. Lab results narrative: Influenza and COVID negative Critical Care Time Critical Care Time Critical Care Time: No Discharge Plan Discharge Clinical Impression: Upper respiratory infection Qualifiers: URI type: unspecified URI Qualified Code(s): J06.9 - Acute upper respiratory infection, unspecified Patient Disposition: Home, Self-Care Condition: Stable Instructions: Upper Respiratory Infection (DC) Additional Instructions: Your symptoms are likely due to a viral illness, which is not treated with antibiotics. Virus symptoms can last for up to 7-10days. Take ibuprofen, Aleve, or for pain or fever. Rest and stay hydrated. Follow up with your PCP in 7 days if symptoms are not improving. Go to the ER immediately if you develop shortness of breath, difficulty swallowing, or any other concerning symptoms. Your blood pressure was elevated above 120/80 today at Urgent Care. This puts you above the threshold for follow up. Please schedule a followup visit with your personal physician as soon as possible, for further evaluation and treatment. Even blood pressure exceeding 120/80 may indicate pre-hypertension. Prescriptions: No Action sucralfate 1 gram tablet albuterol sulfate 90 mcg/actuation HFA aerosol inhaler 1 - 2 inh inhalation Q4-6H PRN (Reason: shortness of breath or wheezing) Qty: 8.5 0RF pantoprazole 40 mg tablet,delayed release (DR/EC) 40 mg PO QAM Qty: 90 3RF Follow-up/Referrals: Sherwin,AMI Mccall [Primary Care Provider] - Time of Disposition: 16:05
[2024-09-27 16:04] LABS: EDCOVIDSCREEN Negative (Negative); EDINFLUASCREEN Negative (Negative); EDINFLUBSCREEN Negative (Negative)
== END 2024-09-27 16:11 | disposition home or self-care (01) ==
PROVIDERS: Emergency Provider Nurse Practitioner; PCP Physician Assistant
DX: J06.9 Acute upper respiratory infection, unspecified (principal); Z20.822 Contact with and (suspected) exposure to COVID-19; J45.909 Unspecified asthma, uncomplicated; K21.9 Gastro-esophageal reflux disease without esophagitis; E78.5 Hyperlipidemia, unspecified; Z87.891 Personal history of nicotine dependence
CPT/HCPCS: 87426; 87804; 99212; G0463

== ENCOUNTER 2025-05-25 17:03 | Emergency (ER) | payer SELFPAY ==
--- OUTSIDE RECORDS SUMMARY | 2025-05-25 17:06 | XMS_ITS ---
Author Organization [facility] Address [address] [place], [place] [id number] Care Team Providers Care Organizational Research Consultant Name Role Phone ZafarhayleyAgata upton Unavailable [phone] REASON FOR VISIT flu Encounters Encounter Location Date Provider Diagnosis [facility] [address], [address] [place], [place] [id number] 12/27/2024 Agata Castrejon Polyarthralgia M25.5 0 ; Paresthesia R20.2 and Dizziness R42 ASSESSMENTS Encounter Date Diagnosis Assessment Notes Treatment Notes Treatment Clinical Notes Section Notes 12/27/2024 Polyarthralgia (ICD-10 - M25.50) Worsening join t complaints- check additional labs to evaluate for an underlying inflammatory arthritis or CTD. Reviewed patients health history forms 12/27/2024 Paresthesia (ICD-10 - R20.2) Worsening joint complaints- check additional labs to evaluate for an underlying inflammatory arthritis or CTD. Reviewed patients health history forms 12/27/2024 Dizziness (ICD-10 - R42) Worsening joint complaints- check additional labs to evaluate for an underlying inflammatory arthritis or CTD. 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 No subcutaneous nodules noted in the 4 extremities Neurological: No focal neurologica l findings Heme/Lymphatic: No cervical, axillar y, or inguinal adenopathy Psych: Alert, oriented x 3, Normal affect Musculoskeletal: Normal strength. No muscle atrophy Joint Exam Shoulders No swelling. No tenderness. NROM. Elbows No swelling. No tend erness. NROM. Wrists No swelling. No tend erness. NROM. Hips No tenderness, octavia l ROM, no instability or deformity Knees No swelling, no tend erness, NROM. No instability or deformity Ankles No swelling, no tend erness, NROM., No instability or deformity. All MCPs No swelling, no tend erness, no deformity unless noted below. All PIPs No swelling, no tend erness, no deformity unless noted below. All DIPs No swelling, no tend erness, no deformity unless noted below. All MTPs No swelling, no tend erness, NROM, no deformity unless noted below. History and Physical Notes * HPI (History of Present Illness) Category Sub-Category Detail Notes Category Not es Rheumatology Joint pain He was referred by his PCP for evaluation of Labs 01/04: ESR=1
--- OUTSIDE RECORDS SUMMARY | 2025-05-25 17:06 | XMS_ITS | Encounter Summary ---
Author Organization [facility] Address [address] [place] [address] Care Team Providers Care Embedded Software Manager Name Role Phone Maria L Guillen PA-C Primary Care Provider [phone] Angelic Kevin Primary Care Provider [phone] Flaquito Courtney Primary Care Provider [phone] Encounter Details Date Type Department Care Team (Late st Contact Info) Description 08/05/2011 Abstract [facility] Conversion Md, Generic Conversion, Social History Tobacco Use Types Packs/Day Years Used Date Smoking Tobacco: Never Assessed Sex and Gender Information Value Date Recorded Sex Assigned at Male 11/23/2024 11:58 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 Sex Male 4:46 PM CDT Gender Identity Not on file Sexual Orientation Not on file documented as of this encounter Plan of Treatment Not on file documented as of this encounter Visit Diagnoses Not on filedocumented in this encounter Additional Health Concerns Infection Onset Date Last Indicated Resolved Time COVID-19 Rule Out 12/30/2022 12/30/2022 12/30/2022 1:10 PM TURBINE INSPECTOR COVID-19 Rule Out 04/04/2024 04/04/2024 04/04/2024 9:27 PM CDT COVID-19 Rule Out 11/27/2024 11/27/2024 11/27/2024 4:04 PM TURBINE INSPECTOR COVID-19 Rule Out 12/15/2024 12/15/2024 12/15/2024 1:14 PM TURBINE INSPECTOR COVID-19 Rule Out 12/15/2024 12/15/2024 12/15/2024 1:42 PM TURBINE INSPECTOR COVID-19 Rule Out 01/24/2025 01/24/2025 01/24/2025 9:05 AM CDT Respiratory Rule Out 01/24/2025 01/24/2025 025 9:05 AM CDT COVID-19 Confirmed 01/24/2025 01/24/2025 12:32 AM CDT documented as of this encounter Care Teams Embedded Software Manager Relationship Specialty Start Date End Date Maria L Guillen PA-C [address] [facility] [address] [place] [address] PCP - General PHYSICIAN RISK ANALYST 12/04/18 12/22/21 Angelic Kevin APNP [address] [address] [address] [place] [id number] PCP - General Nurse Practitioner Family 12/23/21 [address] [place] [address] [place], [place] [id number] PCP - General Physician Public Information Coordinator Medical 04/09/24 documented as of this encounter
--- OUTSIDE RECORDS SUMMARY | 2025-05-25 17:06 | XMS_ITS | Patient Health Record ---
Author Organization [facility] Address [address] [place], [place] [id number] Care Team Providers Care Kiln Door Builder Name Role Phone Zafarhayleyalexsandra Agata Unavailable [phone] REASON FOR REFERRAL No Information PROBLEMS Problem Type ICD Code Onset Dates Problem Status W/U Status Risk SNOMED Code Notes Problem Paresthesia (R20.2) Active confirmed [id number] Encounters Encounter Location Date Provider Diagnosis [facility] [address], [address] [id number] 12/22/2024 Agata Castrejon Polyarthralgia M25.5 0 ; Paresthesia R20.2 and Dizziness R42 [facility] [address] [place], [place] [id number] 12/27/2024 Agata Castrejon Polyarthralgia M25.5 0 ; Paresthesia R20.2 and Dizziness R42 [facility] [address] [place], [place] [id number] 01/03/2025 Agata Castrejon ASSESSMENTS Encounter Date Diagnosis Assessment Notes Treatment Notes Treatment Clinical Notes Section Notes 12/22/2024 Polyarthralgia (ICD-10 - M25.50) Worsening join t complaints- check additional labs to evaluate for an underlying inflammatory arthritis or CTD. Reviewed patients health history forms 12/22/2024 Paresthesia (ICD-10 - R20.2) Worsening joint complaints- check additional labs to evaluate for an underlying inflammatory arthritis or CTD. Reviewed patients health history forms 12/27/2024 Polyarthralgia (ICD-10 - M25.50) Worsening join t complaints- check additional labs to evaluate for an underlying inflammatory arthritis or CTD. Reviewed patients health history forms 12/27/2024 Paresthesia (ICD-10 - R20.2) Worsening joint complaints- check additional labs to evaluate for an underlying inflammatory arthritis or CTD. Reviewed patients health history forms 12/22/2024 Dizziness (ICD-10 - R42) Worsening joint complaints- check additional labs to evaluate for an underlying inflammatory arthritis or CTD. Reviewed patients health history forms 12/27/2024 Dizziness (ICD-10 - R42) Worsening joint complaints- check additional labs to evaluate for an underlying inflammatory arthritis or CTD. Reviewed patients health history forms 01/03/2025 Reviewed patients health history forms PLAN OF TREATMENT No Information Insurance Providers Payer Name Payer Address Payer Phone Subscriber Number Group Number Insured Name Patient Relationship to Insured Coverage Start Date Coverage End Date [facility] [employer] [facility] [place] Exchange NO Referral RQD [address] [place] [address] [id number] Shadi Alfonso Self - patient is the insured 5
--- OUTSIDE RECORDS SUMMARY | 2025-05-25 17:06 | XMS_ITS | Clinical Summary ---
Author Organization [facility] Address [address], [facility] [address] [place] [address] Phone Care Team Providers Care Manager Of Data Name Role Phone Flaquito Courtney Primary Care Provider [phone] Joaquin Thao MD Unavailable [phone] Allergies Active Allergy Reactions Criticality Noted Date Comments Atorvastatin Other (see Comments) 04/12/2024 Chest pain Clindamycin Other (see Comments) Medium 12/23/2021 Oral blisters Omeprazole Other (see Comments) 02/28/2020 Constipation. Penicillins Hives,Rash,Unknown Low 06/07/2011 Medications No known medications Active Problems No known active problems Family History Medical History Relation Name Comments Diabetes Father Hypertension Father Cardiac Issues Mother Diabetes Mother Relation Name Status Comments Father Alive Mother Alive Sister Alive Social History Tobacco Use Types Packs/Day Years Used Date Smoking Tobacco: Former Cigarettes 3 34.5 S tarted: 1990 Smokeless Tobacco: Never Sex and Gender Information Value Date Recorded Sex Assigned at Not on file Legal Sex Male 10:38 AM ALGEBRAIST Gender Identity Not on file Sexual Orientation Not on file Last Filed Vital Signs Vital Sign Reading Time Taken Comments Blood Pressure 128/64 01/13/2025 10:07 AM ALGEBRAIST Pulse 63 01/13/2025 10:07 AM ALGEBRAIST Temperature 36.7 C (98 F) 01/13/2025 10:07 AM ALGEBRAIST Respiratory Rate - - Oxygen Saturation 97% 01/13/2025 10:07 AM ALGEBRAIST Inhaled Oxygen Concentration - - Weight 78.9 kg (174 lb) 01/13/2025 10:07 AM ALGEBRAIST Height 172.7 cm (5' 8) 01/13/2025 10:07 AM ALGEBRAIST Body Mass Index 26.46 01/13/2025 10:07 AM ALGEBRAIST Plan of Treatment Health Maintenance Due Date Last Done Comments Hepatitis C Virus (HCV) Screening 1974 Hepatitis B Immunization (1 of 3 - 19+ 3-dose series) 1993 Cologuard 2019 Colonoscopy 2019 Pneumococcal Immunization (5 0+ years) (1 of 1 - PCV) 2024 SARS-COV-2 Immunization (1 - 2023-25 season) 2024 Zoster Immunization (1 of 2) 2024 Influenza Immunization (#1) 2025 Colorectal Cancer Screening 08/16/2025 Immunochemical Fecal Occult Blood 08/16/2025 024 Respiratory Syncytial Virus (RSV) Immunization (Adult) (1 - 1-dose 75+ series) 2049 TdaP Immunization Completed 12/31/2011 Human Papillomavirus (HPV) Immunization Aged Out No longer eligible b ased on patient's age to complete this topic Meningococcal Immunization (ACWY) Aged Out No longer eligible based on patient's age to complete this topic Rotavirus Immunization Aged Out No lo nger eligible based on patient's age to complete this topic Insurance [employer] Care Teams Manager Of Data Relationship Specialty Start Date End Date Flaquito Courtney PA [address] [place] [address] PCP - General Physician Leaf Stripper 12/30/24 Joaquin Thao MD [address] [place] [phone] Consulting Physician Oncology 12/30/24
--- OUTSIDE RECORDS SUMMARY | 2025-05-25 17:06 | XMS_ITS | Referral Summary ---
Author Organization [facility] Address [address] [place] [address] Care Team Providers Care Pedicab Driver Name Role Phone Angelic Kevin NP Primary Care Provider [phone] Allergies No known active allergies Medications tamsulosin (FLOMAX) 0.4 mg extended release capsule Take 1 capsule (0.4 mg total) by mouth nightly 90 capsule 3 07/03/2022 Active Active Problems Problem Noted Date Diagnosed Date Dysuria 07/03/2022 Prostatitis 07/03/2022 Social History Tobacco Use Types Packs/Day Years Used Date Smoking Tobacco: Former Comments:smoked 1-2 ppd for 4 years. Quit smoking approximately 2017 AUDIT-C Answer Date Recorded Q1: How often do you have a drink containing alc ohol? Never 07/03/2022 Average Number of Drinks Not on file 022 Frequency of Binge Drinking Not on file 06/11 Personal Safety Answer Date Recorded Have you ever been in or are you currently in a harmful physical or emotional relationship or is someone making you feel afraid or unsafe? Denies 12/09/2024 Sex and Gender Information Value Date Recorded Sex Assigned at Not on file Legal Sex Male 1:57 AM TABLE MAKER Gender Identity Not on file Sexual Orientation Not on file Last Filed Vital Signs Vital Sign Reading Time Taken Comments Blood Pressure 128/81 12/09/2024 1:04 PM TABLE MAKER Pulse 96 12/09/2024 1:04 PM TABLE MAKER Temperature 36.9 C (98.5 F) 12/09/2024 11:10 AM TABLE MAKER Respiratory Rate 12 12/09/2024 1:04 PM TABLE MAKER Oxygen Saturation 99% 12/09/2024 1:04 PM TABLE MAKER Inhaled Oxygen Concentration - - Weight 74.8 kg (165 lb) 12/09/2024 11:10 AM TABLE MAKER Height 175.3 cm (5' 9) 12/09/2024 11:10 AM TABLE MAKER Body Mass Index 24.37 12/09/2024 11:10 AM TABLE MAKER Plan of Treatment Not on file Insurance [facility] [employer] [place] Care Teams Pedicab Driver Relationship Specialty Start Date End Date Angelic Kevin NP PCP - General Family Medicine 07/02/22
--- OUTSIDE RECORDS SUMMARY | 2025-05-25 17:06 | XMS_ITS | Clinical Summary ---
Author Organization [facility] Address [address] [place] [address] Care Team Providers Care Pulp Drier Firer Name Role Phone Angelic Kevin NP Primary Care Provider [phone] Allergies No known active allergies Medications tamsulosin (FLOMAX) 0.4 mg extended release capsule Take 1 capsule (0.4 mg total) by mouth nightly 90 capsule 3 07/03/2022 Active Active Problems Problem Noted Date Diagnosed Date Dysuria 07/03/2022 Prostatitis 07/03/2022 Surgical History Surgery Date Site/Laterality Comments MANDIBLE FRACTURE SURGERY Medical History Medical History Date Comments Bone fracture Family History Medical History Relation Name Comments Prostate cancer Paternal Grandmother Relation Name Status Comments Paternal Grandmother d from prostate cancer Social History Tobacco Use Types Packs/Day Years [...] on file Legal Sex Male 1:57 AM GAS APPLIANCE MECHANIC Gender Identity Not on file Sexual Orientation Not on file Obstetrics History Last Filed Vital Signs Vital Sign Reading Time Taken Comments Blood Pressure 128/81 12/09/2024 1:04 PM GAS APPLIANCE MECHANIC Pulse 96 12/09/2024 1:04 PM GAS APPLIANCE MECHANIC Temperature 36.9 C (98.5 F) 12/09/2024 11:10 AM GAS APPLIANCE MECHANIC Respiratory Rate 12 12/09/2024 1:04 PM GAS APPLIANCE MECHANIC Oxygen Saturation 99% 12/09/2024 1:04 PM GAS APPLIANCE MECHANIC Inhaled Oxygen Concentration - - Weight 74.8 kg (165 lb) 12/09/2024 11:10 AM GAS APPLIANCE MECHANIC Height 175.3 cm (5' 9) 12/09/2024 11:10 AM GAS APPLIANCE MECHANIC Body Mass Index 24.37 12/09/2024 11:10 AM GAS APPLIANCE MECHANIC Plan of Treatment Health Maintenance Due Date Last Done Comments Colon Cancer Screening-Colonoscopy 1974 Depression Screening 1974 Hepatitis C Screening 1974 Prostate Cancer Screening-PSA 1974 Hepatitis B Screening 1992 Regular Well Visit/Exam 18-64 1992 Pneumococcal vaccine <65 (1 of 2 - PCV) 1993 DTaP/Tdap/Td Vaccine (2 - Td or Tdap) 12/31/2021 Zoster Vaccine (1 of 2) 2024 Influenza Vaccine (Season Ended) 2025 Insurance [facility] Care Teams Pulp Drier Firer Relationship Specialty Start Date End Date Angelic Kevin NP PCP - General Family Medicine 07/02/22
--- OUTSIDE RECORDS SUMMARY | 2025-05-25 17:06 | XMS_ITS | Encounter Summary ---
Author Organization [facility] Address [address] [place] [address] Care Team Providers Care Outside Sales Advertising Executive Name Role Phone Maria L Guillen PA-C Primary Care Provider [phone] Angelic Kevin Primary Care Provider [phone] Flaquito Courtney Primary Care Provider [phone] Encounter Details Date Type Department Care Team (Late st Contact Info) Description 08/15/2015 Abstract [facility] CONVERSION [address] [place], [place] [id number] , Generic ConversionMD Social History Tobacco Use Types Packs/Day Years Used Date Smoking Tobacco: Never Assessed Sex and Gender Information Value Date Recorded Sex Assigned at Male 11/23/2024 11:58 AM DEFENCE FORCE SENIOR OFFICER Legal Sex Male 4:46 PM CDT Gender Identity Not on file Sexual Orientation Not on file documented as of this encounter Plan of Treatment Not on file documented as of this encounter Visit Diagnoses Not on filedocumented in this encounter Additional Health Concerns Infection Onset Date Last Indicated Resolved Time COVID-19 Rule Out 12/30/2022 12/30/2022 12/30/2022 1:10 PM DEFENCE FORCE SENIOR OFFICER COVID-19 Rule Out 04/04/2024 04/04/2024 04/04/2024 9:27 PM CDT COVID-19 Rule Out 11/27/2024 11/27/2024 11/27/2024 4:04 PM DEFENCE FORCE SENIOR OFFICER COVID-19 Rule Out 12/15/2024 12/15/2024 12/15/2024 1:14 PM DEFENCE FORCE SENIOR OFFICER COVID-19 Rule Out 12/15/2024 12/15/2024 12/15/2024 1:42 PM DEFENCE FORCE SENIOR OFFICER COVID-19 Rule Out 01/24/2025 01/24/2025 01/24/2025 9:05 AM CDT Respiratory Rule Out 01/24/2025 01/24/2025 025 9:05 AM CDT COVID-19 Confirmed 01/24/2025 01/24/2025 12:32 AM CDT documented as of this encounter Care Teams Outside Sales Advertising Executive Relationship Specialty Start Date End Date Maria L Guillen PA-C [address] [facility] [place] [address] PCP - General PHYSICIAN CHARTER COORDINATOR 12/04/18 12/22/21 Angelic Kevin APNP [address] [address] [address] [place] [address] PCP - General Nurse Practitioner Family 12/23/2103/12 [place] [address] [place] [address] PCP - General Physician Marine Driller Medical 04/09/24 documented as of this encounter
--- OUTSIDE RECORDS SUMMARY | 2025-05-25 17:06 | XMS_ITS | Encounter Summary ---
Author Organization [facility] Address [address] [place] [address] Care Team Providers Care Screw Machine Set Up Operator Tool Name Role Phone Flaquito Courtney Primary Care Provider Encounter Details Date Type Department Care Team (Late st Contact Info) Description 12/03/2024 [employer] Message Enc [facility] - [address], [address] [place] [id number] [employer] miguel[employer], [facility] Provider Scheduling Social History Tobacco Use Types Packs/Day Years Used Date Smoking Tobacco: Former Cigarettes 1 30.2 1 989 - 02/04/2019 Passive Smoke Exposure: Past Smokeless Tobacco: Former Chew Quit: 1998 Alcohol Use Standard Drinks/Week Comments Not Currently 0 (1 standard drink = 0.6 oz pur e alcohol) wendy oscar [facility] Utilities Answer Date Recorded In the past 12 months has [employer], gas, oil, or water [employer] threatened to shut off services in your home? No 11/30/2024 Humiliation, Afraid, Rape, and Kick questionnair e Answer Date Recorded Within the last year, have y ou been afraid of your partner or ex-partner? No 11/30/2024 Within the last year, have y ou been humiliated or emotionally abused in other ways by your partner or ex-partner? No Within the last year, have y ou been kicked, hit, slapped, or otherwise physically hurt by your partner or ex-partner? No 11/30/2024 Within the last year, have y ou been raped or forced to have any kind of sexual activity by your partner or ex-partner? No 11/30/2024 Overall Financial Resource Strain (CARDIA) Answe r Date Recorded How hard is it for you to pa y for the very basics like food, housing, medical care, and heating? Very hard 11/30/2024 PHQ-2 Answer Date Recorded Patient Health Questionnaire-2 Score 0 04/12/2024 Hunger Vital Sign Answer Date Recorded Within the past 12 months, y ou worried that your food would run out before you got the money to buy more. Never true 11/30/19 25 Within the past 12 months, t he food you bought just didn't last and you didn't have money to get more. Never true 11/30/2024 PRAPARE - Transportation Answer Date Re corded In the past 12 months, has l ack of transportation kept you from medical appointments or from getting medications? No 11/11 In the past 12 months, has l ack of transportation kept you from meetings, work, or from getting things needed for daily living? No 11/30/2024 Housing Stability Vital Sign Answer Ramiro e Recorded In the last 12 months, was t here a time when you were not able to pay the mortgage or rent on time? No 11/30/2024 In the past 12 months, how m any times have you moved where you were living? 0 11/30/2024 At any time in the past 12 m [facility], were you homeless or living in a fpc (including now)? No 11/30/2024 Sex and Gender Information Value Date Recorded Sex Assigned at Male 11/23/2024 11:58 AM WEAPONS ELECTRICAL ENGINEERING OFFICER Legal Sex Male 4:46 PM CDT Gender Identity Not on file Sexual Orientation Not on file documented as of this encounter Functional Status * Question Answer Date of Assessment Author Status Do you have serious difficulty walking or climbing stairs? No 12/03/2024 7:59 AM Ernie Bernabe, RN Ac tive Do you have difficulty dressing or bathing? No 12/03/2024 7:59 AM Ernie Bernabe, R N Active * Are you deaf or do you have serious difficulty hearing Answer Date of Assessment Author Status No 12/03/2024 7:59 AM Ernie Bernabe RN Active * Are you blind or do you have serious difficulty seeing, even when wearing glasses? Answer Date of Assessment Author Status No 12/03/2024 7:59 AM Ernie Bernabe RN Active * Do you have serious difficulty walking or climbing stairs? Answer Date of Assessment Author Status No 12/03/2024 7:59 AM Ernie Bernabe RN Active * Do you have difficulty dressing or bathing? Answer Date of Assessment Author Status No 12/03/2024 7:59 AM Ernie Bernabe RN Active * Because of a physical, mental, or emotional condition, do you have difficulty doing errands alone such as visiting a doctor's office or shopping? Answer Date of Assessment Author Status No 11/30/2024 3:44 PM Jemma Ng RN Active * Question Answer Date of Assessment Author Status Are you deaf or do you have serious difficulty hearing No 12/03/2024 7:59 AM Ernie Bernabe RN Act prashant Are you blind or do you have serious difficulty seeing, even when wearing glasses? No 12/03/2024 7:59 AM Ernie Bernabe RN Act prashant * Calculated C-SSRS Risk Score (Lifetime/Recent) Answer Date of Assessment Author Status No Risk Indicated 12/03/2024 9:51 PM Socorro Turcios RN Active * M[place]racken Suicide Severity Rating Scale (Screener/Recent Self-Report) Question Answer Date of Assessment Author Status 1. Wish to be (Past 1 Month) No 12/03/2024 9:51 PM Socorro Turcios RN Active 2. Non-Specific Active Suicidal Thoughts (Past 1 Month) No 12/03/2024 9:51 PM Socorro Turcios RN Active 6. Suicidal Behavior (Lifetime) No 12/03/2024 9:51 PM Socorro Turcios RN Active documented as of this encounter Mental Status * Question Answer Entry Date Author Status Because of a physical, mental, or emotional condition, do you have serious difficulty concentrating, remembering, or making decisions? No 12/03/2024 7:59 AM Ernie Bernabe R N Active * Because of a physical, mental, or emotional condition, do you have serious difficulty concentrating, remembering, or making decisions? Answer Entry Date Author Status No 12/03/2024 7:59 AM WEAPONS ELECTRICAL ENGINEERING OFFICER Ernie Elliott RN Active documented in this encounter Plan of Treatment Not on file documented as of this encounter Goals Goal Patient Goal Type Associated Problems Recent Progress Patient-Stated? Author Patient will return to prior living situation and remain independent in ADLs upon discharge from hospital Lifestyle No Anali Ashley RN documented as of this encounter Visit Diagnoses Not on filedocumented in this encounter Additional Health Concerns Infection Onset Date Last Indicated Resolved Time COVID-19 Rule Out 12/15/2024 12/15/2024 12/15/2024 1:14 PM WEAPONS ELECTRICAL ENGINEERING OFFICER COVID-19 Rule Out 12/15/2024 12/15/2024 12/15/2024 1:42 PM WEAPONS ELECTRICAL ENGINEERING OFFICER COVID-19 Rule Out 01/24/2025 01/24/2025 01/24/2025 9:05 AM CDT Respiratory Rule Out 01/24/2025 01/24/2025 025 9:05 AM CDT COVID-19 Confirmed 01/24/2025 01/24/2025 12:32 AM CDT Assessment Noted Time PHQ-9 Depression Total Score: 3 11/12/19 20 1:01 PM WEAPONS ELECTRICAL ENGINEERING OFFICER documented as of this encounter Care Teams Screw Machine Set Up Operator Tool Relationship Specialty [place] [address] [place] [address] PCP - General Physician All Around Presser Medical 04/09/24 documented as of this encounter
--- OUTSIDE RECORDS SUMMARY | 2025-05-25 17:07 | XMS_ITS | Encounter Summary ---
Author Organization [facility] Address [address] [place] [address] Care Team Providers Care Remote Ruby On Rails Developer Name Role Phone Maria L Guillen PA-C Primary Care Provider [phone] Angelic Kevin Primary Care Provider [phone] Flaquito Courtney Primary Care Provider [phone] Encounter Details Date Type Department Care Team (Late st Contact Info) Description 04/17/2019 Abstract [facility] CONVERSION [address] [id number] , Generic MD Jonny Social History Tobacco Use Types Packs/Day Years Used Date Smoking Tobacco: Former Cigarettes Smokeless Tobacco: Former Chew Quit: 1998 Alcohol Use Standard Drinks/Week Comments Yes 0 (1 standard drink = 0.6 oz pur e alcohol) wendy oscar Sex and Gender Information Value Date Recorded Sex Assigned at Male 11/23/2024 11:58 AM JEWELRY MANAGER Legal Sex Male 4:46 PM CDT Gender Identity Not on file Sexual Orientation Not on file documented as of this encounter Plan of Treatment Not on file documented as of this encounter Visit Diagnoses Not on filedocumented in this encounter Additional Health Concerns Infection Onset Date Last Indicated Resolved Time COVID-19 Rule Out 12/30/2022 12/30/2022 12/30/2022 1:10 PM JEWELRY MANAGER COVID-19 Rule Out 04/04/2024 04/04/2024 04/04/2024 9:27 PM CDT COVID-19 Rule Out 11/27/2024 11/27/202411/27/2024 4:04 PM JEWELRY MANAGER COVID-19 Rule Out 12/15/2024 12/15/2024 12/15/2024 1:14 PM JEWELRY MANAGER COVID-19 Rule Out 12/15/2024 12/15/2024 12/15/2024 1:42 PM JEWELRY MANAGER COVID-19 Rule Out 01/24/2025 01/24/2025 01/24/2025 9:05 AM CDT Respiratory Rule Out 01/24/2025 01/24/2025 025 9:05 AM CDT COVID-19 Confirmed 01/24/2025 01/24/2025 12:32 AM CDT documented as of this encounter Care Teams Remote Ruby On Rails Developer Relationship Specialty Start Date End Date Maria L Guillen PA-C [address] [facility] [address] [place] [address] PCP - General PHYSICIAN DITCH REPAIRER 12/04/18 12/22/21 Angelic Kevin APNP [address] [address] [address] [place] [phone] PCP - General Nurse Practitioner [facility] 12/23/2103/12 [place] [address] [place] [address] PCP - General Physician Ceramic Designer Medical 04/09/24 documented as of this encounter
--- OUTSIDE RECORDS SUMMARY | 2025-05-25 17:07 | XMS_ITS | Clinical Summary ---
Author Organization [facility] Address [address] [place] [address] Care Team Providers Care Game Breeding Farm Manager Name Role Phone Flaquito Courtney Primary Care Provider [phone] Allergies Active Allergy Reactions Criticality Noted Date Comments Clindamycin Contact Dermatitis Medium 12/23/2021 Oral blisters Atorvastatin Other (see comment) 04/12/2024 Chest pain Penicillins Hives,Rash,Unknown Low 06/07/2011 Omeprazole GI Upset 02/28/2020 Constipation. Medications albuterol sulfate HFA 108 (90 Base) MCG/ACT inhalerIndicati ons:Asthma ([facility]) Inhale 2 puffs into the lungs every 6 (six) hours as needed. 1 Inhaler 1 02/03/2020 Active fluticasone propionate (FLONASE) 50 MCG/ACT nasal spray 1 spray by Each Nostril route daily as needed for Rhinitis. 15.8 mL 12/03/2024 Active tamsulosin (FLOMAX) 0.4 MG Cap Take 1 capsule (0.4 mg total) by mouth daily. 30 capsule 12/04/2024 Active albuterol sulfate HFA 108 (90 Base) MCG/ACT inhalerIndicati ons:Centrilobul ar emphysema (CMS/[facility]) Inhale 2 puffs into the lungs every 6 (six) hours as needed for Wheezing. 18 g 6 01/14/2025 Active omeprazole (PRILOSEC) 40 MG capsule Take 1 capsule (40 mg total) by mouth daily. 01/17/2025 Active Active Problems Problem Noted Date Diagnosed Date Lipoma of neck 12/21/2024 Hypotension, unspecified 12/19/2024 Assessment & Plan (12/19/2024 6:25 PM SYSTEM SUPPORT ADMINISTRATOR): Blood pressure initially 90/60 mmHg in office. Recheck blood pressure 3 times, sitting, standing, and after walking around for a few minutes. Sitting and standing pressures remained 90/70 mmHg. Blood pressure after walking around for a few minutes was around 110 systolic. Patient stopped taking all medications about 2 weeks ago. States he remains well-hydrated throughout the day. He had a recent viral infection at the beginning of the year and currently in office states he is feeling somewhat nauseous. Advised patient to continue to monitor home blood pressures and remain well-hydrated. Informed patient if blood pressures drop below 90 systolic and he becomes symptomatic he should call our office or seek further evaluation at the ER. Other chest pain 12/19/2024 Assessment & Plan (12/19/2024 6:30 PM SYSTEM SUPPORT ADMINISTRATOR): Patient has been experiencing intermittent chest pain along with shortness of breath over the past few weeks. Chest pain is not always associated with exertional activities. Pain will occasionally wake patient up from sleep. Explained chest pain is atypical in nature to patient. Given patient's significant smoking history and new onset of symptoms, will plan for stress test to further evaluate. Weight loss 11/30/2024 Generalized abdominal pain 11/30/2024 Dizziness 05/07/2024 Assessment & Plan (05/07/2024 11:19 AM CDT): Will check an echocardiogram. Its possible that his episodes are related to vasovagal episodes. Agree with neurology consultation. Palpitations 05/07/2024 Assessment & Plan (12/19/2024 6:27 PM SYSTEM SUPPORT ADMINISTRATOR): Patient reports palpitations on and off over the past few weeks. Will plan for a 30-day event monitor. Assessment & Plan (05/07/2024 11:19 AM CDT): Discussed monitoring, but he does not appear to be having palpitations frequent enough to recommend a monitor at this time. Claudication 05/07/2024 Assessment & Plan (05/07/2024 11:20 AM CDT): It seems like he may be having some claudicationin his legs given the weakness and cramping he is describing. If his echo is within normal limits, we can consider RAJESH. Hypogonadism in male 05/06/2019 History of tobacco abuse 08/10/2015 Assessment & Plan (12/19/2024 6:32 PM SYSTEM SUPPORT ADMINISTRATOR): Patient reports to smoking 2 to 4 packs of cigarettes from the ages of [age]. He has not smoked in the past 5 years. Encouraged continued smoking cessation. Cervical radiculopathy 07/27/2013 Asthma ([facility]) Resolved Problems Problem Noted Date Diagnosed Date Resolved Date Prostate cancer screening 05/06/2019 Depression 04/14/2013 12/11/2018 Overview (12/11/2018): well controlled per pt, no longer needing medications Encounters Date Type Department Care Team Description 03/04/2025 Results [facility] [address] [place] [id number] Kandy Liz, RN CLINIC - OUTPATIENT EVENT RECORDER (ECG) UP TO 30 DAYS COMPLETE (Holter) from Last 3 Months Immunizations Immunization Administration Dates Next Due Tdap (Generic) 12/31/2011 Family History Medical History Relation Comments Diabetes Cousin leukemia Cousin Asthma Father COPD Father Diabetes Father Hypertension Father Cancer Maternal Grandfather Diabetes Maternal Grandfather Lung Cancer Maternal Grandfather Diabetes Maternal Grandmother leg tumor Maternal Grandmother Lung Cancer Maternal Uncle Diabetes Mother Hypertension Mother Open Heart Mother Cancer Paternal Grandfather leukemia, i ntestinal? Diabetes Paternal Grandfather Cancer Paternal Grandmother lymphoma an d breast cancer. Diabetes Paternal Grandmother Lung Cancer Paternal Uncle Relation Status Comments Cousin Father Alive Maternal Grandfather Maternal Grandmother Maternal Uncle Mother Alive Paternal Grandfather Paternal Grandmother Paternal Uncle Social History Tobacco Use Types Packs/Day Years Used Date Smoking Tobacco: Former Cigarettes 1 30.2 1 989 - 02/04/2019 Passive Smoke Exposure: Past Smokeless Tobacco: Former Chew Quit: 1998 Tobacco Cessation:Counseling Given: Not Answered Alcohol Use Standard Drinks/Week Comments Not Currently 0 (1 standard drink = 0.6 oz pur e alcohol) [facility] Utilities Answer Date Recorded In the past 12 months has th e electric, gas, oil, or water company threatened to shut off services in your [...] Date Recorded Patient Health Questionnaire-2 Score 0 01/21/2025 Hunger Vital Sign Answer Date Recorded Within [...] any time in the past 12 m [facility], were you homeless or living in a alf (including now)? No 11/30/2024 Sex and Gender Information Value Date Recorded Sex Assigned at Male 11/23/2024 11:58 AM SYSTEM SUPPORT ADMINISTRATOR Legal Sex Male 4:46 PM CDT Gender Identity Not on file Sexual Orientation Not on file Last Filed Vital Signs Vital Sign Reading Time Taken Comments Blood Pressure 114/74 02/02/2025 1:01 PM CDT Pulse 101 02/02/2025 1:01 PM CDT Temperature 37.3 C (99.1 F) 02/02/2025 1:01 PM CDT Respiratory Rate 18 02/02/2025 1:01 PM CDT Oxygen Saturation 99% 02/02/2025 1:01 PM CDT Inhaled Oxygen Concentration - - Weight 78.5 kg (173 lb) 02/02/2025 1:01 PM CDT Height 172.7 cm (5' 8) 02/02/2025 1:01 PM CDT Body Mass Index 26.3 02/02/2025 1:01 PM CDT Plan of Treatment Health Maintenance Due Date Last Done Comments Annual Physical 1977 Hepatitis C 1992 Hepatitis B Vaccines (1 of 3 - 19+ 3-dose series) 1993 Pneumococcal Vaccine: 50+ Years (1 of 2 - PCV) 1993 DTaP, Tdap and Td Vaccines ( 2 - Td or Tdap) 12/31/2021 12/31/2011 COVID-19 Vaccine (1 - 2023-2 5 season) 2024 Zoster Vaccines (1 of 2) 2024 Lung Cancer Screening 01/25/2026 01/25/2025 , 08/16/2024 Colorectal Cancer Screening Colonoscopy (10 Years) 12/01/2034 12/01/2024 Colorectal Cancer Screening FIT/FOBT (1 Year) Discontinued 08/16/2024 PHQ-2 (Physician [place]) Completed 01/21/2025 Meningococcal B Vaccine Aged Out No l onger eligible based on patient's age to complete this topic Meningococcal Vaccine Aged Out No charo chloe eligible based on patient's age to complete this topic RSV Immunizations Under 20 Months Aged Out No longer eligible based on patient's age to complete this topic Goals Goal Patient Goal Type Associated Problems Recent Progress Patient-Stated? Author Patient will return to prior living situation and remain independent in ADLs upon discharge from hospital Lifestyle No Anali Ashley, RN Interventions Community Resource Recommendations Community Resource Services Recommended Domains Addressed Status Status Reason/Outcome Date/Time [facility] Financial Assistance Financial Resource Strain 12/01/2024 9:35 AM SYSTEM SUPPORT ADMINISTRATOR [facility] Financial Assistance Financial Resource Strain 12/01/2024 9:35 AM SYSTEM SUPPORT ADMINISTRATOR from Last 12 Months Medical Devices Implanted Type Area Home Health Attendant Device Identifier Shelf Expiration Date Model / Serial / Lot Pillcam Implanted:Qty: 1 on 12/03/2024 by uJli Palmer, ELENI at [facility] 01/07/2026 [id number] / / [id number] Description:Manufacture- Giv en Procedures Procedure Name Priority Date/Time Associated Diagnosis Comments CT CHEST WO CON Routine 01/25/2025 3:01 PM CDT Lung nodule OCCULT BLOOD, FECES STAT 08/16/2024 4 :42 PM CDT from Last 3 Months or Most Recently Relevant to Health Maintenance Results * CT CHEST WO CON (01/25/2025 3:01 PM CDT) Anatomical Region Laterality Modality Chest Computed Tomogra phy 01/27/2025 12:5 5 AM CDT Impressions 01/27/2025 1:00 AM CDT IMPRESSION: 1. Redemonstration of an approximately 4 mm left upper lobe pulmonary nodule appearing similar to the prior examination but new since 08/16/2024. If the patient has a smoking history or other risk factors, a follow-up chest CT could be considered on or around 12/10/2025 to evaluate for interval change per Fleischner guidelines. 2. Minimal pulmonary emphysema. Referred By: VISHAL APPLE Interpreted By: Jon Tate DO, 01/27/2025 12:55 AM Narrative 01/27/2025 1:00 AM CDT [facility] [address] [place], [place] [address] EXAMINATION: CT CHEST WO CON EXAM DATE: 01/25/2025 2:54 PM CLINICAL HISTORY: Follow-up pulmonary nodule. COMPARISON: CTA chest 12/10/[address] chest, abdomen, and pelvis 08/16/2024. TECHNIQUE: Axial unenhanced CT of the chest was performed. Coronal and sagittal reformatted images were obtained and reviewed. A radiation dose lowering technique was used for this procedure, which may include, but is not limited to, dose reduction technique, automated exposure control, the use of iterative reconstruction, ALARA (As Low As Reasonably Achievable) techniques, and Image Gently techniques. FINDINGS: MEDIASTINUM: The heart is normal in size without pericardial effusion. There are minimal atherosclerotic calcifications at the thoracic aortic arch without aneurysmal dilatation of the thoracic aorta. There is no mediastinal fluid collection or adenopathy. There is no internal mammary chain, axillary, or supraclavicular adenopathy. PLEURAL SPACES: There is no pleural effusion or pneumothorax. LUNGS: There is minimal pulmonary emphysema in the lung apices. A 4 mm pulmonary nodule is redemonstrated in the left lung apex (series 3 image 39) appearing similar to the prior examination but new since 08/16/2024. There is no focal pulmonary consolidation. ABDOMEN: There are atherosclerotic calcifications of the visualized upper abdominal aorta. MUSCULOSKELETAL: There is no destructive osseous lesion. Procedure Note Jon Tate, - 01/27/2025 [facility] [address] [place], [place] [address] EXAMINATION: CT CHEST WO CON EXAM DATE: 01/25/2025 2:54 PM CLINICAL HISTORY: Follow-up pulmonary nodule. COMPARISON: CTA chest 12/10/[address] chest, abdomen, and [id number]/2024. TECHNIQUE: Axial unenhanced CT of the chest was performed. Coronal andsagittal reformatted images were obtained and reviewed. A radiation doselowering technique was used for this procedure, which may include, but isnot limited to, dose reduction technique, automated exposure control, theuse of iterative reconstruction, ALARA (As Low As Reasonably Achievable)techniques, and Image Gently techniques. FINDINGS: MEDIASTINUM: The heart is normal in size without pericardial effusion. There areminimal atherosclerotic calcifications at the thoracic aortic arch withoutaneurysmal dilatation of the thoracic aorta. There is no mediastinal fluidcollection or adenopathy. There is no internal mammary chain, axillary,or supraclavicular adenopathy. PLEURAL SPACES: There is no pleural effusion or pneumothorax. LUNGS: There is minimal pulmonary emphysema in the lung apices. A 4 mm pulmonarynodule is redemonstrated in the left lung apex (series 3 image 39)appearing similar to the prior examination but new since 08/16/2024. Thereis no focal pulmonary consolidation. ABDOMEN: There are atherosclerotic calcifications of the visualized upper abdominalaorta. MUSCULOSKELETAL: There is no destructive osseous lesion. IMPRESSION: 1. Redemonstration of an approximately 4 mm left upper lobe pulmonarynodule appearing similar to the prior examination but new since 08/16/2024.If the patient has a smoking history or other risk factors, a follow-upchest CT could be considered on or around 12/10/2025 to evaluate forinterval change per Fleischner guidelines. 2. Minimal pulmonary emphysema. Referred By: VISHAL APPLE Interpreted By: Jon Tate DO, 01/27/2025 12:55 AM Vishal Apple MD CT Final Resul t * OCCULT BLOOD, FECES (08/16/2024 4:42 PM CDT) OCCULT BLOOD FECAL NEGATIVE 08/16/2024 5:06 PM CDT [facility] STOOL SPECIMEN / Unknown 08/16/2024 4:42 PM CDT us Andrea Perez DO BODY FLUIDS AND STOOLS ORDERAB LES Final Result [facility] [address] [place] [address], [place] [phone] from Last 3 Months or Most Recently Relevant to Health Maintenance Insurance Advance Directives * Full Code (Latest Code Status on File) Date Activated Date Inactivated Comments 11/30/2024 3:27 PM 12/03/2024 9:27 AM Care Teams Game Breeding Farm Manager Relationship Specialty [place] [address] [place] [address] PCP - General Physician E Commerce Strategist Medical 04/09/24
--- OUTSIDE RECORDS SUMMARY | 2025-05-25 17:07 | XMS_ITS | Encounter Summary ---
Author Organization [facility] Address [address] [place] [address] Care Team Providers Care Cold Roll Packer Sheet Iron Name Role Phone Flaquito Courtney Primary Care Provider [phone] Encounter Details Date Type Department Care Team (Late st Contact Info) Description 12/24/2024 [facility] Documentation [facility] [address] [place] [id number] Tom Rayo MD [address] [address] Social History Tobacco Use Types Packs/Day Years Used Date Smoking Tobacco: Former Cigarettes 1 30.2 1 989 - 02/04/2019 Passive Smoke Exposure: Past Smokeless Tobacco: Former Chew Quit: 1998 Alcohol Use Standard Drinks/Week Comments Not Currently 0 (1 standard drink = 0.6 oz pur e alcohol) wendy oscar [facility] Utilities Answer Date Recorded In the past 12 months has e electric, gas, oil, or water company [...] Date Recorded Patient Health Questionnaire-2 Score 0 12/15/2024 Hunger Vital Sign Answer Date Recorded Within [...] any time in the past 12 m [facility], were you homeless or living in a nursing home (including now)? No 11/30/2024 Sex and Gender Information Value Date Recorded Sex Assigned at Male 11/23/2024 11:58 AM HUMAN SERVICES CASE MANAGER Legal Sex Male 4:46 PM CDT Gender Identity Not on file Sexual Orientation Not on file documented as of this encounter Functional Status * Are you deaf or do you have serious difficulty hearing Answer Date of Assessment Author Status No 12/03/2024 7:59 AM Ernie Bernabe RN Active * Are you blind or do you have serious difficulty seeing, even when wearing glasses? Answer Date of Assessment Author Status No 12/03/2024 7:59 AM HUMAN SERVICES CASE MANAGER Ernie Elliott RN Active * Do you have serious difficulty walking or climbing stairs? Answer Date of Assessment Author Status No 12/03/2024 7:59 AM Ernie Bernabe RN Active * Do you have difficulty dressing or bathing? Answer Date of Assessment Author Status No 12/03/2024 7:59 AM HUMAN SERVICES CASE MANAGER Ernie Elliott RN Active * Because of a physical, mental, or emotional condition, do you have difficulty doing errands alone such as visiting a doctor's office or shopping? Answer Date of Assessment Author Status No 11/30/2024 3:44 PM HUMAN SERVICES CASE MANAGER Jemma De Guzman RN Active documented as of this encounter Mental Status * Because of a physical, mental, or emotional condition, do you have serious difficulty concentrating, remembering, or making decisions? Answer Entry Date Author Status No 12/03/2024 7:59 AM HUMAN SERVICES CASE MANAGER Ernie Elliott RN Active documented in this [...] Last Indicated Resolved Time COVID-19 Rule Out 01/24/2025 01/24/2025 01/24/2025 9:05 AM CDT Respiratory Rule Out 01/24/2025 01/24/2025 025 9:05 AM CDT COVID-19 Confirmed 01/24/2025 01/24/2025 12:32 AM CDT Assessment Noted Time PHQ-9 Depression Total Score: 3 11/12/19 20 1:01 PM HUMAN SERVICES CASE MANAGER documented as of this encounter Care Teams Cold Roll Packer Sheet Iron Relationship Specialty [place] [address] [place] [address] PCP - General Physician Instrument Man Medical 04/09/24 documented as of this encounter
--- OUTSIDE RECORDS SUMMARY | 2025-05-25 17:07 | XMS_ITS ---
Author Organization [facility] Address [address] [place], [place] [id number] Care Team Providers Care Fitter Hand Name Role Phone Cash Agata Unavailable [phone] REASON FOR VISIT auto immune/flu Encounters Encounter Location Date Provider Diagnosis [facility] [address], [address] [place], [place] [phone] 01/03/2025 Agata Castrejon ASSESSMENTS Encounter Date Diagnosis Assessment Notes Treatment Notes Treatment Clinical Notes Section Notes 01/03/2025 Reviewed patients health history forms PLAN OF TREATMENT Next Appt Details Follow Up: 2 Weeks with TURRET PUNCH PRESS OPERATOR, Reason: Progress Notes * Examination Category Sub-Category [...]
--- OUTSIDE RECORDS SUMMARY | 2025-05-25 17:07 | XMS_ITS ---
Author Organization [facility] Address [address] [place], [place] [id number] Care Team Providers Care Warp Tier Name Role Phone Agata Castrejon Unavailable [phone] REASON FOR VISIT auto immune PROBLEMS Problem Type ICD Code Onset Dates Problem Status W/U Status Risk SNOMED Code Notes Problem Paresthesia (R20.2) Active confirmed [id number] Encounters Encounter Location Date Provider Diagnosis [facility] [address], [address] [place], [place] [id number] 12/22/2024 Agata Cash Polyarthralgia M25.5 0 ; Paresthesia R20.2 and [...] Appt Details Follow Up: 2 Weeks with JIGMAKER, Reason: Progress Notes * Examination Category Sub-Category [...]
[2025-05-25 17:09] VITALS: BP 132/78; PULSE 82; RESP 16; TEMP 36.4; O2SAT 98
--- NOTE | 2025-05-25 17:23 | ED.BACK ---
HPI - Back Pain/Injury General Chief Complaint: Back Pain/Injury Stated Complaint: Stomach / Back Pain Time Seen by Provider: 05/25/25 17:24 Source: patient and RN notes reviewed Mode of arrival: ambulatory Limitations: no limitations History of Present Illness HPI Narrative: 49-year-old male presented for complaint dark colored urine for about 2 weeks. He endorses urine is very dark in the mornings, says it alarcon at the end of urination, and smells like ?maple syrup. ? Pain at times radiates from bladder to left lower back/hip area or to the testicular area. LBM this morning and says was normal. denies vomiting, diarrhea, hematochezia, hematuria, or fever. Endorses chronic nausea and generalized abdominal pain which he says has been worked up recently. Pt admits to working outside and tries to drink water. Related Data Home Medications ?Medication ?Instructions ?Recorded ?Confirmed ?Last Taken ?Type sucralfate 1 gram tablet 1 g DIRECTED 09/27/24 09/27/24 Unknown History Allergies Allergy/AdvReac Type Severity Reaction Status Date / Time venom-wasp Allergy Severe Anaphylaxis Verified 05/25/25 17:05 clindamycin Allergy Mild Blister Verified 05/25/25 17:05 Penicillins Allergy Mild Rash Verified 05/25/25 17:05 Review of Systems Review of Systems: CONSTITUTIONAL: Denies body aches, fever, chills ENT: Denies rhinorrhea, congestion CARDIOVASCULAR: Denies chest pain, palpitations, or edema. RESPIRATORY: Denies cough or dyspnea. GASTROINTESTINAL: Endorses abdominal pain, nausea, Denies vomiting, diarrhea, hematochezia, melena GENITOURINARY: reports dysuria, denies hematuria, or CVA tenderness. SKIN: Denies rash MUSCULOSKELETAL: Denies back pain, joint pain, or myalgia. NEUROLOGIC: Denies headache, numbness, tingling, or weakness. All systems reviewed & are unremarkable except as noted in HPI and below PMFSH Past Medical History Medical History Allergic reaction to wasp sting (05/03/22) treated in the ER with epinephrine, prednisone, Benadryl 05/03/2022. Altered bowel habits Anxiety Arthralgia of multiple joints Asthma BMI 27.0-27.9,adult Cervicalgia Chest pain Chronic cough Colon cancer screening Coughing Cyst of left kidney Decreased exercise tolerance Dysuria Elevated fasting glucose Encounter to establish care Epigastric pain Fatigue Fever GERD (gastroesophageal reflux disease) H. pylori infection H. pylori infection Headache History of tobacco abuse Hyperlipidemia Hypersomnia Lesion of mouth Lumbago Lymphadenopathy Nasal congestion Nausea and vomiting in adult No active medical problems Periodontitis Pharyngitis Prostate cancer screening Rhinitis Rib pain on left side Sensation of swollen throat Shortness of breath Sinus pressure Sinusitis Snoring Thrush Total bilirubin, elevated Surgical History Surgical History History of mandibular surgery Family History Family History Father Diabetes mellitus Hypertension Mother Diabetes mellitus Hypertension Heart disease Social History Social History Smoking packs per day: 4 Smoking cigarettes per day: 80.0 Smoking status: Former smoker Tobacco type: cigarettes Alcohol intake: current Alcohol use details: Rarely Substance use: current Substance use type: marijuana Living arrangements: with family Occupation/Education: occupation Gender identity (if verbalized by the patient): Male Sexual Orientation (if Verbalized by the Patient): Straight or Heterosexual Spiritual care concerns: No Agree to blood products: Yes Comments At time of signature, I have reviewed and agree with nursing past medical, surgical, social and family history unless otherwise noted. Please see nursing chart for further information. There is no relevant family history pertinent to the presenting complaint Exam Narrative: GENERAL: Well-appearing, and in no acute distress. ENT: Mucous membranes pink and moist. CHEST: No respiratory distress. Clear to auscultation. HEART: Regular rate and rhythm. ABDOMEN: abd soft, nondistended, normal active bowel sounds. Tender abdomen to RUQ and suprapubic area. No guarding, rebound tenderness, asymmetry. EXTREMITIES: Normal range of motion. No edema. SKIN: Warm, dry, no rash. Capillary refill normal. Normal skin turgor. NEURO: No focal deficits. Alert and oriented x3. PSYCH: Normal affect. Course Course Emergency Course: Patient is aware of diagnosis, understands and agrees to treatment plan. Anticipatory guidance given. Patient agrees to follow-up as directed and is aware of reasons to seek care at the emergency department. Portions of this record may have been created with voice recognition software Level of Care: Express Care Visit Vital Signs Vital signs: Vital Signs Temperature 97.6 F 05/25/25 17:09 Pulse Rate 82 05/25/25 17:09 Respiratory Rate 16 05/25/25 17:09 Blood Pressure 132/78 05/25/25 17:09 Pulse Oximetry 98 05/25/25 17:09 Oxygen Delivery Room Air 05/25/25 17:09 Temperature 97.6 F 05/25/25 17:09 Pulse Rate 82 05/25/25 17:09 Respiratory Rate 16 05/25/25 17:09 Blood Pressure 132/78 05/25/25 17:09 Pulse Oximetry 98 05/25/25 17:09 Oxygen Delivery Room Air 05/25/25 17:09 MDM - Back Pain/Injury MDM Narrative Medical decision making narrative: Discussed physical exam findings and reviewed urine, will culture. Pt is tender to RUQ but he stated he had US 01/2025. Pt states he has no insurance at this time and wants to wait for any additional testing until the insurance restarts. Pt admits to working outside and tries to drink water; advised electrolyte replacement. Advised supportive measures and signs/symptoms to go to the ER. Pt is appropriate for outpt treatment and f/u. Differential Diagnosis Differential diagnosis: Likely other (STI, UTI, cystitis, testicular torsion, hernia, cholecystitis, appendicitis, diverticulitis, ischemic colitis, mesenteric ischemia, peritonitis, IBS, tumor, pyelonephritis) Discharge Plan Discharge Clinical Impression: Dysuria Patient Disposition: Home Condition: Stable Instructions: Antibiotic Form, Dehydration (ED) Additional Instructions: Your urine will be sent of for a culture to determine if bacteria is causing your symptoms. If the culture shows a UTI, you will be notified and an antibiotic will be called in for you. Stay hydrated. Take small sips of fluid containing electrolytes frequently. You can also add sips of pickle juice if you will be outside in the heat for long periods. Avoid fatty, greasy, fried or spicy foods. Limit dairy until symptoms are improved. You should go to the hospital if you experience persistent nausea and vomiting that does not resolve and does not allow you to tolerate any food or fluids, fevers, increasing abdominal pain, persistent diarrhea, dizziness, fainting, or for any other concerns. Follow up with primary care provider in 3 days. Patient Language: Macedonian Prescriptions: No Action sucralfate 1 gram tablet 1 g DIRECTED albuterol sulfate 90 mcg/actuation HFA aerosol inhaler 1 - 2 inh inhalation Q4-6H PRN (Reason: shortness of breath or wheezing) Qty: 8.5 0RF pantoprazole 40 mg tablet,delayed release (DR/EC) 40 mg PO QAM Qty: 90 3RF Follow-up/Referrals: Sherwin,AMI Mccall [Primary Care Provider] - Time of Disposition: 17:44
[2025-05-25 17:31] LABS: EDUAAPPEAR Clear; EDUABILI Negative (Negative); EDUABLOOD Negative (Negative); EDUACOLOR1 Yellow; EDUAGLUCOSE Negative (Negative); EDUAKETONE Trace (Negative); EDUALEUKO Negative (Negative); EDUANITRATE Negative (Negative); EDUAPH 5.5; EDUAPROTEIN Negative (Negative); EDUASPGRAVITY 1.030; EDUAUROBILI 0.2
== END 2025-05-25 17:46 | disposition home or self-care (01) ==
PROVIDERS: Emergency Provider Nurse Practitioner Family; PCP Physician Assistant
DX: R30.0 Dysuria (principal); Z87.891 Personal history of nicotine dependence; F12.90 Cannabis use, unspecified, uncomplicated; J45.909 Unspecified asthma, uncomplicated; K21.9 Gastro-esophageal reflux disease without esophagitis; E78.5 Hyperlipidemia, unspecified
CPT/HCPCS: 81003; 87086; 99212; 99213; G0463